=== PATIENT | female | born 1980 | race Caucasian/White ===

== ENCOUNTER 2022-09-02 08:31 | Outpatient (CLI) | payer BC, SELFPAY ==
--- NOTE | 2022-09-02 08:45 | CRLHL7_ITS ---
For Patients: As a result of the Cures Act, medical imaging exams and procedure reports are released immediately into your electronic medical record. You may view this report before your referring provider. If you have questions, please contact your health care provider. INDICATION: Follow up a right-sided thyroid lobe nodule. Fine needle aspiration/biopsy x2. TECHNIQUE : Directed thyroid ultrasound. Grayscale and color Doppler images were acquired of the thyroid gland. COMPARISON : September 24, 2020. FINDINGS: The right thyroid lobe is larger than the left measuring 6.9 x 3.7 x 3.9 cm. The left thyroid lobe measures 3.1 x 0.9 x 0.9 cm. The isthmus measures 0.2 cm in thickness. No left-sided thyroid lobe nodules. No isthmic nodules. The right thyroid gland is largely occupied by a 6.1 x 3.7 x 4.4 cm solid mixed echogenic and isoechoic nodule previously measuring 5.7 x 3.5 x 4.4 cm. No gerry thyroidal nodules or masses. IMPRESSION: Minor interval increase in one dimension of the solid mixed echogenic and isoechoic nodule within the right thyroid gland. The examination is otherwise unremarkable. Dictated by James Phillips MD @ 09/02/2022 9:26:17 AM (Electronically Signed)
== END 2022-09-02 08:32 | disposition home or self-care (01) ==
PROVIDERS: Visit Provider Surgery
DX: E04.1 Nontoxic single thyroid nodule (principal)
CPT/HCPCS: 76536

== ENCOUNTER 2022-09-09 11:26 | Outpatient (CLI) | payer BC, SELFPAY | END 2022-09-09 11:27 | disposition home or self-care (01) | LOC: NFLDREF 11:27 | PROVIDERS: Visit Provider Surgery | DX: E04.9 Nontoxic goiter, unspecified (principal) | CPT/HCPCS: 84443 ==

== ENCOUNTER 2022-10-03 08:32 | Outpatient (CLI) | payer BC, SELFPAY ==
--- NOTE | 2022-10-03 08:15 | CRLHL7_ITS ---
For Patients: As a result of the Century Cures Act, medical imaging exams and procedure reports are released immediately into your electronic medical record. You may view this report before your referring provider. If you have questions, please contact your health care provider. INDICATION : Right thyroid nodule. TECHNIQUE : Ultrasound-guided fine needle aspiration of thyroid nodule. Comparison : 09/02/2022, 09/24/2020 FINDINGS : PROCEDURE: After the informed consent and time-out, multiple fine needle aspirations were obtained from the thyroid nodule. Fine needle performed. 25 gauge needles were used. Lidocaine was used for local anesthesia. The preliminary cytology was adequate for interpretation. Real-time imaging was used for guidance and needle placement. Post imaging ultrasound demonstrates no immediate complication. IMPRESSION : Successful fine needle aspiration of right thyroid lobe nodule. Dictated by Shiva Staton MD @ 10/03/2022 9:30:59 AM (Electronically Signed)
== END 2022-10-03 08:33 | disposition home or self-care (01) ==
LOC: US 08:32
PROVIDERS: Visit Provider Surgery
DX: E04.1 Nontoxic single thyroid nodule (principal)
CPT/HCPCS: 10005; 88173

== ENCOUNTER 2023-04-14 10:01 | Outpatient (CLI) | payer BC, SELFPAY | END 2023-04-14 10:02 | disposition home or self-care (01) | PROVIDERS: Visit Provider Family Medicine | DX: Z00.00 Encounter for general adult medical examination without abnormal findings (principal); E55.9 Vitamin D deficiency, unspecified; E04.1 Nontoxic single thyroid nodule; E04.9 Nontoxic goiter, unspecified; D64.9 Anemia, unspecified; E66.9 Obesity, unspecified; R35.89 Other polyuria; Z11.59 Encounter for screening for other viral diseases; Z79.899 Other long term (current) drug therapy | CPT/HCPCS: 80053; 80061; 82306; 84443; 86803 ==

== ENCOUNTER 2023-06-11 10:05 | Outpatient (CLI) | payer BC, SELFPAY ==
--- OUTSIDE RECORDS SUMMARY | 2023-06-11 10:09 | XMS_ITS | Clinical Summary ---
Author Name Unknown Organization [place] Address [address] [place] [address] Care Team Providers Care General Cargo Clerk Name Role Phone [facility]- Primary Care Provider Aleida White MD Unavailable [phone] Allergies No known active allergies Medications Medication Sig Dispensed Refills Start Date End Date Status lamoTRIgine (LAMICTAL) 200 MG tablet Take 1 tablet by mouth At Bedtime 02/13/2022 Active citalopram (CELEXA) 40 MG tablet Take 40 mg by mouth At Bedtime 02/05/2022 Active ibuprofen (ADVIL/MOTRIN) 200 MG tablet Take 400 mg by mouth every 6 hours as needed Active acetaminophen (TYLENOL) 500 MG tablet Take 1,000 mg by mouth daily as needed Active oxyCODONE (ROXICODONE) 5 MG tabletIndications:Acut e cholecystitis Take 1-2 tablets (5-10 mg) by mouth every 4 hours as needed for moderate to severe pain 10 tablet 02/17/2022 Active senna-docusate (SENOKOT-S/PERICOLACE) 8.6-50 MG tabletIndications:Acut e cholecystitis Take 1-2 tablets by mouth 2 times daily 30 tablet 02/17/2022 Active ondansetron (ZOFRAN ODT) 4 MG ODT tabIndications:Acute cholecystitis Take 1 tablet (4 mg) by mouth every 8 hours as needed for nausea 4 tablet 02/17/2022 Active Encounters Date Type Department Care Team Description 04/15/2023 Transcribe Orders GENERIC EXTERNAL DATA DEPARTMENT Provider, Generic External Data Nontoxic single thyroid nodule (Primary Dx); Nontoxic goiter, unspecified 04/14/2023 Medical Correspondence [facility] Info Mgmt [facility] [address] [place] [address] Scan, Non-Provider from Last 3 Months Immunizations Name Administration Dates Next Due TDAP Vaccine (Adacel) 02/16/2019 Social History Tobacco Use Types Packs/Day Years Used Date Smoking Tobacco: Never Assessed Adolescent Education Answer Date Record ed Getting School Help Needed Not on file 11/08 Sex and Gender Information Value Date Recorded Sex Assigned at Not on file Gender Identity Not on file Sexual Orientation Not on file Last Filed Vital Signs Vital Sign Reading Time Taken Comments Blood Pressure 104/76 02/17/2022 12:12 PM HUMAN RESOURCES DESIGNATE Pulse 98 02/17/2022 12:12 PM HUMAN RESOURCES DESIGNATE Temperature 36.4 ??C (97.6 ??F) 02/17/2022 1 2:12 PM HUMAN RESOURCES DESIGNATE Respiratory Rate 16 02/17/2022 12:1 2 PM HUMAN RESOURCES DESIGNATE Oxygen Saturation 94% 02/17/2022 12: 12 PM HUMAN RESOURCES DESIGNATE Inhaled Oxygen Concentration - - Weight 101.6 kg (223 lb 14.4 oz) 02/17/2022 1:40 AM HUMAN RESOURCES DESIGNATE Height 170.2 cm (5' 7) 02/17/2022 1:40 AM HUMAN RESOURCES DESIGNATE Body Mass Index 35.07 02/17/2022 1:40 AM HUMAN RESOURCES DESIGNATE Plan of Treatment Upcoming Encounters Date Type Department Care Team (Late st Contact Info) Description 10/21/2023 10:00 AM CDT Office Visit [facility] [address] [place] [address] Gabriela Briceno MD [facility] AND [address] [address] Aleida White MD [address] [place] [address] [address] [place] [address] Health Maintenance Due Date Last Done Comments ADVANCE CARE PLANNING 1981 ANNUAL REVIEW OF HM ORDERS 1981 MAMMO SCREENING 1981 YEARLY PREVENTIVE VISIT 1981 HIV SCREENING 1996 HEPATITIS C SCREENING 11/24/1999 HEPATITIS B IMMUNIZATION (1 of 3 - 19+ 3-dose series) 2000 PAP 2002 LIPID 2021 COVID-19 Vaccine (4 - 2022-2 4 season) 2022 05/03/2021, 07/03/2020, 06/09/2020 INFLUENZA VACCINE (#1) 2022 11/11/2019 PHQ-2 (once per calendar year) 2023 GLUCOSE 02/17/2025 02/17/2022, 02/16/2022 DTAP/TDAP/TD IMMUNIZATION (2 - Td or Tdap) 02/16/2029 02/16/2019 HPV IMMUNIZATION Aged Out No longer e ligible based on patient's age to complete this topic IPV IMMUNIZATION Aged Out No longer e ligible based on patient's age to complete this topic MENINGITIS IMMUNIZATION Aged Out No l onger eligible based on patient's age to complete this topic Pneumococcal Vaccine: Pediatrics (0 to 5 Years) and At-Risk Patients (6 to 64 Years) Aged Out No longer eligible b ased on patient's age to complete this topic RSV MONOCLONAL ANTIBODY Aged Out No l onger eligible based on patient's age to complete this topic Procedures Procedure Name Priority Date/Time Associated Diagnosis Comments LAB RESULT - HIM SCAN 04/14/2023 12:00 AM HUMAN RESOURCES DESIGNATE LAB RESULT - HIM SCAN 04/14/2023 12:00 AM HUMAN RESOURCES DESIGNATE BASIC METABOLIC PANEL Routine 02/17/2022 7:34 AM HUMAN RESOURCES DESIGNATE from Last 3 Months or Most Recently Relevant to Health Maintenance Results * LAB RESULT - HIM SCAN (04/14/2023 12:00 AM HUMAN RESOURCES DESIGNATE) Only the most recent of2 resultswithin the time period is included. 04/14/2023 Provider Outside NON-BEAKER LAB TE STING * (ABNORMAL) Basic metabolic panel (02/17/2022 7:34 AM HUMAN RESOURCES DESIGNATE) Sodium 138 136 - 145 mmol/L 02/17/2022 8:08 AM HUMAN RESOURCES DESIGNATE [facility] Potassium 3.8 3.4 - 5.3 mmol/L 02/17/2022 8:08 AM [facility] Chloride 106 98 - 107 mmol/L 02/17/2022 8:08 AM [facility] Carbon Dioxide (CO2) 24 22 - 29 mmol/L 02/17/2022 8:08 AM [facility] Anion Gap 8 7 - 15 mmol/L 02/17/2022 8:08 AM [facility] Urea Nitrogen 8.9 6.0 - 20.0 mg/dL 02/17/2022 8:08 AM [facility] Creatinine 0.60 0.51 - 0.95 mg/dL 02/17/2022 8:08 AM [facility] Calcium 8.1(L) 8.6 - 10.0 mg/dL 02/17/2022 8:08 AM [facility] Glucose 93 70 - 99 mg/dL 02/17/2022 8:08 AM [facility] GFR Estimate >90 >60 mL/min/1.7 3m2 02/17/2022 8:08 AM [facility] Comment:Effective January 172020 eGFRcr in adults is calculated using the 2020 CKD-EPI creatinine equation which includes age and gender (Wm et al., NEJM, DOI: 10.1056/IAFRgq3901097) Blood STRUCTURE OF LEFT UPPER LIMB / Unknown Venipuncture / Unknown 02/17/2022 7:34 AM HUMAN RESOURCES DESIGNATE 02/17/2022 7:45 AM [facility] Blaire Travis PA-C LAB - BLOOD ORDER [facility] Acute Care Lab [address] Lab (1st floor, no room number) [place] [address], [facility] [phone] from Last 3 Months or Most Recently Relevant to Health Maintenance Advance Directives For more information, please contact: [phone] * Full Code (Latest Code Status on File) Date Activated Date Inactivated Comments 02/17/2022 1:15 AM 02/17/2022 2:31 PM All basic and advanced life-sustaining interventions are performed as appropriate Question Answer Comments Code status determined by: Discussion with shawn nt/ legal decision maker Care Teams General Cargo Clerk Relationship Specialty Start Date End Date [facility]- [address] [place] [address] PCP - General 02/16/22 Aleida White MD [address] [place] [address] Hospitalist Endocrinology, Diabetes, and Metabolism 04/15/23
--- OUTSIDE RECORDS SUMMARY | 2023-06-11 10:09 | XMS_ITS | Clinical Summary ---
Author Name Unknown Organization [facility] Address [address] [place] [address] Care Team Providers Care Switch Foreman Name Role Phone Unavailable Primary Care Provider Unavailabl e Source Comments You are receiving this document as you are listed as the primary care provider,follow-up provider, or the patient has been referred to you for consultation.This is in compliance with the Medicare andMedicaid EHR Incentive Program,which states Providers who transition their patient to another setting of careor provider of care or refers their patient to another provider of care shouldprovide summary care record for each transition of care or referral. [facility] Allergies No known active allergies Medications Medication Sig Dispensed Refills Start Date End Date Status acetaminophen 500 MG tablet Take 2 Tablets (1,000 mg) by mouth every 4 hours as needed. Active citalopram (CELEXA) 40 MG tablet Take 1 Tablet (40 mg) by mouth. 02/05/2022 Active ibuprofen (MOTRIN) 200 MG tablet Take 2 Tablets (400 mg) by mouth every 6 hours as needed. Active penicillin V potassium (PEN VK) 500 MG tablet Take 1 Tablet (500 mg) by mouth two times a day. 06/02/2022 Active lamoTRIgine (LAMICTAL) 200 MG tablet Take 1 Tablet (200 mg) by mouth daily at bedtime. 02/13/2022 Active venlafaxine (EFFEXORXR) 75 MG 24 hour release capsule Take 1 Capsule (75 mg) by mouth daily. 04/08/2022 Active Social History Tobacco Use Types Packs/Day Years Used Date Smoking Tobacco: Never Assessed Sex and Gender Information Value Date Recorded Sex Assigned at Not on file Gender Identity Not on file Sexual Orientation Not on file Last Filed Vital Signs Vital Sign Reading Time Taken Comments Blood Pressure - - Pulse - - Temperature 36.7 ??C (98 ??F) 07/01/2022 9:32 AM CDT Respiratory Rate - - Oxygen Saturation - - Inhaled Oxygen Concentration - - Weight 99.8 kg (220 lb) 06/12/2022 8:16 AM CDT Height 170.2 cm (5' 7) 06/12/2022 8:16 AM CDT Body Mass Index 34.46 06/12/2022 8:16 AM CDT Plan of Treatment Health Maintenance Due Date Last Done Comments Cervical Cancer Screening Due 1981 Diabetes Screening- (based o n age and BMI) 1981 Hep C Screening (Preventive Services) 1981 HIV Screening (Preventive Services) 1997 Adult Preventive Visit 11/24/1999 HepB (1) 2000 COVID-19 Vaccine ( - 2022-2 4 season) 2022 05/03/2021, 07/03/2020, 06/09/2020 Influenza (#1) 2022 11/11/2019 DTaP/Tdap/Td (2 - Tdap) 02/16/2029 02/16/2019 Zoster/Shingles (1 of 2) 11/24/2031 HPV Vaccine Aged Out No longer eligi ble based on patient's age to complete this topic HepA Aged Out No longer eligi ble based on patient's age to complete this topic Hib Aged Out No longer eligi ble based on patient's age to complete this topic IPV (Polio) Aged Out No longer eligi ble based on patient's age to complete this topic MCV4 Aged Out No longer eligi ble based on patient's age to complete this topic Pneumococcal Aged Out No longer eligi ble based on patient's age to complete this topic
--- OUTSIDE RECORDS SUMMARY | 2023-06-11 10:09 | XMS_ITS | Encounter Summary ---
Author Name Unknown Organization [place] Address [facility] [place] [address] Care Team Providers Care Butt Maker Name Role Phone [facility], [facility]- Primary Care Provider Aleida White MD Unavailable [phone] Reason for Referral * Consultation (Routine) - Pending Review Specialty Diagnoses / Procedures Referred By Vicente guzman Referred To Contact Endocrinology, Diabetes, and Metabolism Diagnoses Nontoxic single thyroid nodule Nontoxic goiter, unspecified Gabriela Briceno MD [facility] [address] [place] [address] Referral ID Status Reason Start Date Expiration Date V isits Requested Visits Authorized [id number] Pending Review 04/15/2023 04/14/2024 1 1 Question Answer Reason for Referral: Thyroid Scheduling Instructions: [employer] will call you to coordinate your care as prescribed by the provider. If you don? t hear from a risk control field representative within 2 business days, please call [phone]. Comments Referred by: Gabriela Briceno MD [facility] [address] [place] [address] Please be aware that coverage of these services is subject to the terms and limitations of your health insurance plan. Call member services at your health plan with any benefit or coverage questions. [employer] will call you to coordinate your care as prescribed by the provider. If you don? t hear from a risk control field representative within 2 business days, please call [phone]. [place] SUPPORT EQUIPMENT ASSEMBLER Encounter Details Date Type Department Care Team (Late st Contact Info) Description 04/15/2023 Transcribe Orders GENERIC EXTERNAL DATA DEPARTMENT Provider, Generic External Data Nontoxic single thyroid nodule (Primary Dx); Nontoxic goiter, unspecified Social History Tobacco Use Types Packs/Day Years Used Date Smoking Tobacco: Never Assessed Adolescent Education Answer Date Record ed Getting School Help Needed Not on file 11/08 Sex and Gender Information Value Date Recorded Sex Assigned at Not on file Gender Identity Not on file Sexual Orientation Not on file documented as of this encounter Plan of Treatment Upcoming Encounters Date Type Department Care Team (Late st Contact Info) Description 10/21/2023 10:00 AM CDT Office Visit [facility] [address] [facility] [address] [place] [phone] Gabriela Briceno MD [address] [id number] Aleida White MD [address] [place], [place] [address] Scheduled Referrals Name Type Priority Associated Diagnoses Orde r Schedule Adult Endocrinology Fulling Mill Operator Referral Referral Routine Nontoxic single thyroid nodule Nontoxic goiter, unspecified Expected: 04/15/2023 (Approximate), Expires: 04/15/2024 documented as of this encounter Visit Diagnoses Diagnosis Nontoxic single thyroid nodule- Primary Nontoxic uninodular goiter Nontoxic goiter, unspecified documented in this encounter Care Teams Butt Maker Relationship Specialty Start Date End Date [facility]- [address] [place] [address] PCP - General 02/16/22 Aleida White MD [address] [place], [place] [address] Hospitalist Endocrinology, Diabetes, and Metabolism 04/15/23 documented as of this encounter
--- OUTSIDE RECORDS SUMMARY | 2023-06-11 10:09 | XMS_ITS | Encounter Summary ---
Author Name Unknown Organization [place] Address [address] [facility] [place] [address] Care Team Providers Care Web Designer Name Role Phone [facility], [facility]- Primary Care Provider Aleida White MD Unavailable [phone] Encounter Details Date Type Department Care Team (Late Contact Info) Description 04/14/2023 Medical Correspondence [facility] [address] [place] [address] Scan, Non-Provider Social History Tobacco Use Types Packs/Day Years [...] Upcoming Encounters Date Type Department Care Team ([facility] Contact Info) Description 10/21/2023 10:00 AM CDT Office Visit [facility] [address] [place] [address] Gabriela Briceno MD [address] [address] Aleida White MD [address] [place] [address] documented as of this encounter Visit Diagnoses Not on filedocumented in this encounter Care Teams Web Designer Relationship Specialty Start Date End Date [facility]- [address] [place] [address] PCP - General 02/16/22 Aleida White MD [address] [place] [address] Hospitalist Endocrinology, Diabetes, and Metabolism 04/15/23 documented as of this encounter
--- OUTSIDE RECORDS SUMMARY | 2023-06-11 10:09 | XMS_ITS | Referral Summary ---
Author Name Unknown Organization [place] Address [address] [facility] [place] [address] Care Team Providers Care Territory Outside Sales Manager Name Role Phone [facility]- Primary Care Provider Aleida White MD Unavailable [phone] Encounters Date Type Department Care Team Description 04/15/2023 Transcribe Orders GENERIC EXTERNAL DATA DEPARTMENT Provider, Generic External Data Nontoxic single thyroid nodule (Primary Dx); Nontoxic goiter, unspecified 04/14/2023 Medical Correspondence [facility] [address] [place] [address] Scan, Non-Provider from Last 3 Months Allergies No known active allergies Medications Medication [...] needed for nausea 4 tablet 02/17/2022 Active Immunizations Name Administration Dates Next Due TDAP [...] Comments Blood Pressure 104/76 02/17/2022 12:12 PM [facility] Pulse 98 02/17/2022 12:12 PM [facility] Temperature 36.4 ??C (97.6 ??F) 02/17/2022 1 2:12 PM [facility] Respiratory Rate 16 02/17/2022 12:1 2 PM [facility] Oxygen Saturation 94% 02/17/2022 12: 12 PM [facility] Inhaled Oxygen Concentration - - Weight 101.6 kg (223 lb 14.4 oz) 02/17/2022 1:40 AM [facility] Height 170.2 cm (5' 7) 02/17/2022 1:40 AM [facility] Body Mass Index 35.07 02/17/2022 1:40 AM [facility] Plan of Treatment Upcoming Encounters Date Type Department Care Team (Late st Contact Info) Description 10/21/2023 10:00 AM CDT Office Visit [facility] [address] [place] [address] Gabriela Briceno MD [facility] AND [address] [address] Aleida White MD [address] [place] [address] [address] [place] [address] Procedures Procedure Name Priority Date/Time Associated Diagnosis Comments LAB RESULT - HIM SCAN 04/14/2023 12:00 AM [facility] LAB RESULT - HIM SCAN 04/14/2023 12:00 AM [facility] BASIC METABOLIC PANEL Routine 02/17/2022 7:34 AM [facility] from Last 3 Months or Most Recently Relevant to Health Maintenance Results * LAB RESULT - HIM SCAN (04/14/2023 12:00 AM [facility]) Only the most recent of2 resultswithin the time period is included. 04/14/2023 Provider Outside NON-BEAKER LAB TE STING * (ABNORMAL) Basic metabolic panel (02/17/2022 7:34 AM [facility]) Sodium 138 136 - 145 mmol/L 02/17/2022 8:08 AM [facility] Potassium 3.8 3.4 - 5.3 mmol/L 02/17/2022 8:08 AM [facility] Chloride 106 98 - 107 mmol/L 02/17/2022 8:08 AM [facility] Carbon Dioxide (CO2) 24 22 - 29 mmol/L 02/17/2022 8:08 AM [facility] Anion Gap 8 7 - 15 mmol/L 02/17/2022 8:08 AM [facility] Urea Nitrogen 8.9 6.0 - 20.0 mg/dL 02/17/2022 8:08 AM [facility] Creatinine 0.60 0.51 - 0.95 mg/dL 02/17/2022 8:08 AM [facility] Calcium 8.1(L) 8.6 - 10.0 mg/dL 02/17/2022 8:08 AM [facility] Glucose 93 70 - 99 mg/dL 02/17/2022 8:08 AM [facility] GFR Estimate >90 >60 mL/min/1.7 3m2 02/17/2022 8:08 AM [facility] Comment:Effective January 172020 eGFRcr in adults is calculated using the 2020 CKD-EPI creatinine equation which includes age and gender (Wm et al., NEJM, DOI: 10.1056/HNEEmp6347136) Blood STRUCTURE OF LEFT UPPER LIMB / Unknown Venipuncture / Unknown 02/17/2022 7:34 AM [facility] 02/17/2022 7:45 AM [facility] Blaire Travis PA-C LAB - BLOOD ORDER [facility] Acute Care Lab [address] Lab (1st floor, no room number) [place] [address], [facility] [phone] from Last 3 Months or Most Recently Relevant to Health Maintenance Advance Directives For more information, please contact: [phone] * Full Code (Latest Code Status on File) Date Activated Date Inactivated Comments 02/17/2022 1:15 AM 02/17/2022 2:31 PM All basic and advanced life-sustaining interventions are performed as appropriate Question Answer Comments Code status determined by: Discussion with shawn nt/ legal decision maker Care Teams Territory Outside Sales Manager Relationship Specialty Start Date End Date [facility]- [address] [place] [address] PCP - General 02/16/22 Aleida White MD [address] [place] [address] Hospitalist Endocrinology, Diabetes, and Metabolism 04/15/23
--- OUTSIDE RECORDS SUMMARY | 2023-06-11 10:09 | XMS_ITS | Clinical Summary ---
Author Name Unknown Organization [employer] [facility] Address [place], [place] [address] Care Team Providers Care Medical Sales Specialist Name Role Phone Clinic, No Pcp Or Primary Care Provider Unavaila ble Allergies No known active allergies Medications Medication Sig Dispensed Refills Start Date End Date Status sertraline (ZOLOFT) 100 mg tablet Take 1 tablet by mouth every morning. 0 03/22/2018 Active lamoTRIgine (LAMICTAL) 100 mg tablet Take 1 tablet by mouth once daily. 0 03/22/2018 Active triamcinolone (ARISTOCORT; KENALOG) 0.1 % creamIndications:Rash Apply topically to affected area(s) 2 times daily. 45 g 05/31/2018 Active Social History Tobacco Use Types Packs/Day Years Used Date Smoking Tobacco: Never Smokeless Tobacco: Never Alcohol Use Standard Drinks/Week Comments Yes 0 (1 standard drink = 0.6 oz pur e alcohol) PHQ-2 Answer Date Recorded PHQ-2 Score 2 05/31/2018 Sex and Gender Information Value Date Recorded Sex Assigned at Not on file Gender Identity Not on file Sexual Orientation Not on file Obstetrics History Last Filed Vital Signs Vital Sign Reading Time Taken Comments Blood Pressure 122/72 05/31/2018 10:10 AM CDT Pulse 80 05/31/2018 10:10 AM CDT Temperature 36.8 ??C (98.3 ??F) 03/22/2018 9:49 AM CS T Respiratory Rate 20 03/22/2018 9:49 AM THREAD DRAWER Oxygen Saturation 96% 03/22/2018 9:49 AM THREAD DRAWER Inhaled Oxygen Concentration - - Weight 92.1 kg (203 lb) 05/31/2018 10:10 AM CDT Height 172.1 cm (5' 7.75) 05/31/2018 10:10 AM C DT Body Mass Index 31.09 05/31/2018 10:10 AM CDT Plan of Treatment Health Maintenance Due Date Last Done Comments Tdap 1992 HIV for age 15-65 1996 Hepatitis C screening for ag e 18-79 11/24/1999 Tetanus booster 2001 BMI (ht and wt on same day) for age 18+ 06/01/2019 05/31/2018, 03/22/2018 Depression screening for age 12+ 06/01/2019 05/31/2018 Pap test for age 21-65 02/22/2022 0, 02/22/2019 COVID-19 vaccine series (2022- season) 2022 Influenza for age 9-49 10/18/2023 Pneumococcal series for age 6-64 Aged Out No longer eligible b ased on patient's age to complete this topic Procedures Procedure Name Priority Date/Time Associated Diagnosis Comments RADIOLOGY ASSISTANT THIN PREP PAP SCREEN IMAGED Routine 02/22/2019 1:00 PM THREAD DRAWER from Last 3 Months or Most Recently Relevant to Health Maintenance Results * RADIOLOGY ASSISTANT THIN PREP PAP SCREEN IMAGED (02/22/2019 1:00 PM THREAD DRAWER) Case Report Gynecologic Cytology Report ? Case: [id number] ? Authorizing Provider: ??Selena Kamara NP ? Collected: ? 02/22/2019 1300 ? Ordering Location: ? [facility] ?Received: ?02/23/2019 1708 ? First Screen: ?Peter Conde ? Specimen: ?RADIOLOGY ASSISTANT ThinPrep Vial Screening, Cervical/Vaginal ? 03/02/2019 2:18 PM [facility] INTERPRETATION/ RESULT NEGATIVE FOR INTRAEPITHELIAL LESION OR MALIGNANCY (NIL) (none) 03/02/2019 2:18 PM [facility] IMEN ADEQUACY Satisfactory for evaluation Endocervical component present 03/02/2019 2:18 PM [facility] HPV REQUEST HPV and PAP 03/02/2019 2:18 PM [facility] Date of LMP 02/08/2019 03/02/2019 2:18 PM [facility] Last Pap Date 03/02/2019 2:18 PM [facility] Comment:unknown Additional Information 03/02/2019 2:18 PM [facility] Comment: Interpreted at [facility] - [address] [facility] [address], [place] [address] Automated Review Successful 03/02/2019 2:18 PM [facility] Comment:Specimen processed s uccessfully by automated gastroenterology professor device, ThinPrep Imaging System, [employer] ANCILLARY TESTING RADIOLOGY ASSISTANT HPV Ordered, Please see separate report 03/02/2019 2:18 PM [facility] Note The pap test is a screening technique, not a diagnostic procedure. It is used primarily to screen for squamous cancers and precursor lesions. Published studies have shown that it is subject to both false negative and false positive results. The pap test should not be used as the sole means to diagnose or exclude pre-malignant and malignant lesions. 03/02/2019 2:18 PM [facility] Other (Cervical/Vagina l) 02/22/2019 1:00 PM THREAD DRAWER 02/23/2019 5:08 PM THREAD DRAWER Selena Kamara NP [facility] [address] [place] [address], [place] from Last 3 Months or Most Recently Relevant to Health Maintenance Care Teams Medical Sales Specialist Relationship Specialty Start Date End Date Clinic, No Pcp Or . PCP - General 03/22/18
--- OUTSIDE RECORDS SUMMARY | 2023-06-11 10:09 | XMS_ITS | Data Portability ---
Author Name Unknown Address [address] [place] [id number] Phone [phone] Organization [place] - [facility], [facility] Address [address] [place] [address] Care Team Providers Care Call Center Support Consultant Name Role Phone HUA LYNCH Referring Provider Assessment Encounter Date Assessment Date Assessment LastModified by Organization Details LastModified Time 01/25/2019 01/25/2019 Today I spent a considerable amount of time discussing the patients past medical and personal history, as well as performing a physical examination all of which is documented in it's entirety in the electronic health record. I reviewed the pathophysiology of the disorder, potential contributing and risk factors as well as treatment options to address their complaints. Today panoramic imaging was obtained. In this radiograph the mandibular condyles were partially visualized and appear relatively normal in morphology. There was no other suggestion of osseous or odontogenic abnormalities. I've not recommended advanced imaging with CT at this time. From a treatment perspective I've recommended rehabilitative treatment approach. Treatment begins with home self management designed to rest the muscles of mastication and reduce inflammation in the temporomandibular joints. This includes heat and ice compresses, eating a soft food or pain-free diet, bilateral chewing identifying and decreasing daytime muscle tension and modification of their sleep position. Beyond self management I do believe that they would benefit from a maxillary intraoral appliance. In addition I've recommended rehabilitation with physical therapy. The goal of treatment is to restore function and reduce pain. I do believe that by following these treatment recommendations there is a good prognosis for reduction of symptoms. Today greater than 50% of the 60 minute visit was spent counseling and coordinating care. This may have included a review of the diagnosis, contributing factors, diagnostic imaging, home self-management strategies and the limitations and expectations. Cost of care and insurance coverage was reviewed and discussed with the patient. Not available 01/25/2019 11:47:45 02/21/2019 02/21/2019 Symptoms are consistent with TMD diagnosis. Patient is low moderate maximum complexity with 2 personal factors / comorbidities affecting the plan of care, which include stress and anxiety with evolving clinical presentation. Examination determines affected structures, participation restrictions and/or functional limitations. The patient will benefit from PT to decrease pain and increase function. Contributing factors include muscle guarding, oral habits, stress and poor posture. Treatment will include exercises to release muscle tension and increase strength and stability. Habit monitoring and repeated reminding techniques will be utilized to eliminate habitual clenching. Improvement in first session; jaw opening increased from 22 to 32, (36 mm but clicking; 32 mm without clicking so so told not push further), She also bites down harder without increased pain. She gets two fingers, but not knuckles, into mouth Short term goals; 3 weeks Client to be able to open mouth to 35 mm pain free without deviation or crepitis Client to be able to bite down with 50% less pain than at evaluation Client to improve cervical ROM to Within Normal Limits Improve patient awareness of muscle guarding habits to decrease pain by 50% group home goals-6 weeks Client to demonstrate independence in maintaining precautions to prevent TMJ pain Client to present with at least 75% less crepitis Client to open jaw to at least 40 mm without pain, deviation or crepitis Client to have pain-free chewing with moderately hard diet 75% of the time Client to report pain level is reduced at least 75% as evidenced by functional limitation scale PLAN: Client is to be seen 1-2x/week for 4-8 weeks for instruction in jaw and neck exercises, postural exercises and body mechanics instructions, self-soft tissue mobilization avoidance of precipitating parafunctional activities. csather Not available 02/21/2019 11:09:33 02/23/2019 02/23/2019 Improvement in first session; jaw opening increased from 25 to 32, didn't want to push further. No clucking or popping sat end of session. 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 Client to demonstrate independence in maintaining precautions to prevent TMJ pain Client to present with at least 75% less crepitis Client to open jaw to at least 40 mm without pain, deviation or crepitis Client to have pain-free chewing with moderately hard diet 75% of the time Client to report pain level is reduced at least 75% as evidenced by functional limitation scale PLAN: Client is to be seen 1-2x/week for 4-8 weeks for instruction in jaw and neck exercises, postural exercises and body mechanics instructions, self-soft tissue mobilization avoidance of precipitating parafunctional activities. csather Not available 02/23/2019 13:41:39 Plan of Treatment Reminders Order Date Submit Date Provider Last Modified By Organization Details Last Modified Time Details Appointments None recorded. Lab None recorded. Referral physical therapist referral 2019 020 SRI Tay, Jihan Kim, [address], [address], 0 10:30:11 physical therapist referral 2019 020 Jihan Mitchell [address], [place], [address], 0 09:09:05 physical therapist referral 2018 019 Conner, Jihan Kim, [address], [place], [address], 9 11:49:14 Procedures None recorded. Surgeries None recorded. Imaging None recorded. Medication Orders None recorded. Patient TargetsNo targets recorded. Patient Instructions Encounter Date Encounter Id Patient Instructions Last Modified By Organization Details Last Modified Time 02/23/2019 [id number] oral appliance preparation* SRI Not available 03/16/2019 10:43:27 Self Care for TMD csather Not availabl e 02/23/2019 13:42:49 02/21/2019 [id number] oral appliance preparation* SRI Not available 02/23/2019 09:09:15 Self Care for TMD csather Not availabl e 02/21/2019 11:02:57 01/25/2019 [id number] oral appliance preparation* Not available 01/25/2019 11:49:14 Self Care for TMD Not availabl e 01/25/2019 11:49:14 Reason for Referral Physical Therapist Referral for Articular disc disorder of temporomandibular joint Referring Physician: Gabriela Hairston, Pain Management, Encounter Date: 01/25/2019 Physical Therapist Referral for Articular disc disorder of temporomandibular joint Referring Physician: Noel Shah [facility], Encounter Date: 02/21/2019 Physical Therapist Referral for Articular disc disorder of temporomandibular joint Referring Physician: Noel Shah [facility], Encounter Date: 02/23/2019 Results Created Date Observation Date Name Description Value Unit Range Abnormal Flag LastModifiedBy Organization Detail LastModifiedTime 01/25/2019 oral appli ance prepa ratio n* Type of appliance maxill naif stabil izatio n applia nce Not Available Conner [address] [facility] [address], [place], [address], 01/25/2019 11:46:59 01/26/20 19 XR, ortho panto gram No observ ation record ed. [email or web address] Not Available 01/25/2019 10:36:17 Result Notes None recorded. 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 left disc displacement with reduction; right disc displacement without reduction- closed lock EVELYN Smith [facility] 9 11:45:28 Arthralgia of temporomandibular joint Active 2018 EVELYN Smith [facility] 9 11:45:03 Limited opening of mandible Active 2018 Gabriela Madison gatica [facility] 9 11:45:04 Tension-type headache Active 2018 Gabriela Madison gatica [facility] 9 11:45:04 Otalgia of right ear Active 2018 Gabriela Madison gatica [facility] 9 11:45:06 Problem Notes None recorded. Procedures Surgical History Date Name Laterality Status Provider Name and Address Organization Details Recorded Time 02/23/19 06816: Therapeutic Exercise completed Noel gatica [facility] 02/23/2019 13:03:47 02/23/19 49722: Manual Therapy completed Noel gatica [facility] 02/23/2019 13:42:15 02/21/19 [id number] PT Eval - Low Complexity completed Noel gatica [facility] 02/21/2019 10:59:27 02/21/19 [id number]: Therapeutic Exercise completed Noel gatica [facility] 02/21/2019 11:00:00 02/21/19 [id number]: Manual Therapy completed Noel gatica [facility] 02/21/2019 10:59:57 01/26/20 19 Orthopantogram completed Gabriela gatica [facility] 01/25/2019 11:06:06 Imaging Results Imaging Date Name Status LastModified by Organization Details LastModified Time 01/25/2019 XR, orthopantogram completed doron Inform ation not available 01/25/2019 10:36:17 Procedure Notes None recorded. Medical Equipment None Reported. Allergies No known drug allergies Medications Name Sig Start Date Stop Date Status Note LastModified by Organization Details LastModified Time sertraline 100 mg tablet active Not Available Not Available No t Available triamcinolone acetonide 0.1 % topical cream active Not Available Not Availabl e Not Available lamotrigine 25 mg tablet active Not Available Not Available No t Available sertraline 50 mg tablet active Not Available Not Available No t Available lamotrigine 100 mg tablet active Not Available Not Available No t Available Vitals Date Recorded Body height Body mass index (BMI) Body weight Heart rate Systolic blood pressure Diastolic blood pressure Provider Name and Address Organization Details Last Updated DateTime 9 170.18 cm 31.3 kg/m2 33188.4 7 g 80 /min 119 mm[Hg] 79 mm[Hg] JeancarlosEVELYN Go [facility] 9 10:11:18 Social History Question Answer Notes LastModified by Organizat ion Details LastModified Time Tobacco Smoking Status Never Smoker Jeancarlos GironEVELYN keyes [facility] 01/25/2019 10:11:44 What Is Your Level Of Alcohol Consumption? Moderate Information not available 01/25/2019 Auto Related Injury? No Information not available 01/25/2019 What Is Your Level Of Caffeine Consumption? Heavy Information not available 01/25/2019 Are You Currently Employed? Yes Information not available 01/25/2019 Currently No Information not available 01/25/2019 What Type Of Diet Are You Following? REGULAR Information not available 01/25/2019 Do You Reside In Or Have You Traveled To An Area Where Ebola Virus Transmission Is Active? 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 With Others Information not available 01/25/2019 Marital Status Informatio n not available 01/25/2019 What Number Best Describes Your Pain On Average In The Past Week? (0=no Pain, 10=pain As Bad As You Can Imagine) 7 Information not available 01/25/2019 What Number Best Describes How, During The Past Week, Pain Has Interfered With Your Enjoyment Of Life? (0=does Not Interfere, 10= Completely Interferes) 8 Information not available 01/25/2019 What Number Best Describes How, During The Past Week, Pain Has Interfered With Your General Activity? (0=does Not Interfere, 10=completely Interferes) 7 Information not available 01/25/2019 Caffeine Use - How Much? 4 Cups Information not available 01/25/2019 How Did Primary Problem Begin? Mar 2018 Slipped And Hit My Head Caused Jaw Issue On Right Side Always Had Jaw Popping On Left Side Information not available 01/25/2019 How Many Children Do You Have? 1 Information not available 01/25/2019 General Stress Level High Information not available 01/25/2019 Do You Use Any Illicit Or Recreational Drugs? No Information not available 01/25/2019 Work Related Injury? No Information not available 01/25/2019 Sex: Female Functional Status Question Answer Note LastModified by Organizat ion Details LastModified Time What is your exercise level? Occasional Information not available 01/25/2019 Mental Status None recorded. Family History Relationship Description Onset Age of this Age Resolved Age Notes Father Heart disease Father Mental health problem Maternal Grandmother Family history of cancer Mother Mental health problem Medical History Condition Response Coronary Artery Disease N Gout N Other N MRSA N Head Trauma/Injury Y COPD N Depression Y Glaucoma N Lung Disease N Pneumonia N Pacemaker N Obstructive Sleep Apnea N Anxiety Disorder N Autoimmune disease N Muscle, Joint, or Bone Problems N Vision or Eye Problems N Arthritis N Acid Reflux (GERD) N Cancer N Stroke N Back Injury N High Cholesterol N Liver Disease N Organ Transplant N Rheumatoid Arthritis N Fibromyalgia N Headaches N Kidney Disease N Allergies/Hayfever N Post traumatic stress disorder (PTSD) N Parkinson's Disease N Migraines N Brain Tumors N Anemia N Multiple Sclerosis N Heart Attack (ND) N Stomach Ulcers N Diabetes N Bleeding Disorder N Seizures/Epilepsy N Tuberculosis N AIDS/HIV N Dementia N Asthma N Substance Abuse N Vertigo N Sleep Disorder N Hepatitis N Neuropathy N Heart Disease N Pulmonary Embolism N Hypertension Y Osteoporosis N Gynecological HistoryNo gynecological history recorded. Obstetrics History GPAL:G 0 P 0 0 0 0 Past Encounters Encounter ID Performer Location Encounter Start Date Encounter Closed Date Diagnosis/Indication Diagnosis SNOMED-CT Code [id number] Gabriela Pettit [address] [place], [place] [phone] 01/25/2019 09:54:02 01/25/2019 11:27:09 Limited opening of mandible 982926727 Tension-type headache 39 7043611 Otalgia of right ear 109 [id number] 5 Articular disc disorder of temporomandibular joint 83964337 Arthralgia of temporomandibular joint 10119944 Myofascial pain 03817874 9 [id number] Noel Shah [place] [address] [place] [id number] 02/21/2019 10:01:11 02/21/2019 13:14:37 Articular disc disorder of temporomandibular joint 46078482 Myofascial pain 25309755 9 Arthralgia of temporomandibular joint 71943889 Limited op ening of mandible 763932681 Tension-type headache 39 7668699 [id number] Noel Alyssa [place] [address] [place] [id number] 02/23/2019 12:57:36 02/23/2019 13:32:02 Articular disc disorder of temporomandibular joint 08555866 Myofascial pain 63859198 9 Arthralgia of temporomandibular joint 65017653 Limited op ening of mandible 893682845 Tension-type headache 39 2561637 Health Concerns Section Related Observation LastModified by Organization Detai ls LastModified Time None Recorded Concern Status LastModified by Organization Details LastModified Time None Recorded Advance Directives Directive None Recorded Payers Encounter Date Sequence Insurance Name Policy Number Policy Lynch Covered Member ID Lynch Member ID Guarantor Name 02/23/2019 [place] Yung Brice [id number] Yung Brice 02/21/2019 1 [place] Yung Brice [id number] Yung Brice 01/25/2019 1 [place] Yung Brice [id number] Yung Brice Notes Date Note Type Note Provider Name and Address Organization Details Recorded Time 01/25/2019 text/html HPI Notes: gener al HPI for jaw, face, TMD pain Reported by patient. Onset: started 10 month(s) ago Location: right; bilateral Quality: dull; aching; pressure Severity: moderate; pain level 3-5/10; radiating to the head Duration intermittent weekly; initial improvement, but still persistent Symptom triggers: clenching; bruxism; stress; anxiety; chewing gum; chews hard/crunchy/chewy foods; history of trauma to the jaw Aggravating Factors: stress; anxiety; clenching the teeth; yawning; wide mouth opening; dental work; chewing Alleviating Factors: massage; soft foods Associated Symptoms: jaw clicking bilateral; jaw popping bilateral Prior opinion dentist Patient presents today for evaluation of a possible temporomandibular disorder. These symptoms are chronic and began with a fall on the ice in the driveway in 2018. Previous consultation include evaluation with her dentist. Symptoms are right sided only and aggravated by clenching and grinding of their teeth, and jaw use and function. The patient is aware of teeth clenching and grinding. Yuliet reports that she has had a long history of her tmj's clicking with no issue. However, last March she fell on the ice and hit the back of her head and had a concussion. (MRI reported no bleeding on the brain or skull fracture.) Since the fall, she feels like her bite has been off and that she cannot open her mouth all the way when she eats. The noises in her right tmj have ceased but she feels that her jaw is locked. Gabriela gatica [facility] 01/25/2019 11:49:18 02/21/2019 text/html HPI Notes: gener al HPI for jaw, face, TMD pain Reported by patient. Onset: started 10 month(s) ago Location: right; bilateral Quality: dull; aching; pressure Severity: moderate; pain level 3-5/10; radiating to the head Duration intermittent weekly; initial improvement, but still persistent Symptom triggers: clenching; bruxism; stress; anxiety; chewing gum; chews hard/crunchy/chewy foods; history of trauma to the jaw Aggravating Factors: stress; anxiety; clenching the teeth; yawning; wide mouth opening; dental work; chewing Alleviating Factors: massage; soft foods Associated Symptoms: jaw clicking bilateral; jaw popping bilateral Prior opinion dentist Patient presents today for evaluation of a possible temporomandibular disorder. These symptoms are chronic and began with a fall on the ice in the driveway in 2018. Previous consultation include evaluation with her dentist. Symptoms are right sided only and aggravated by clenching and grinding of their teeth, and jaw use and function. The patient is aware of teeth clenching and grinding. Yuliet reports that she has had a long history of her tmj's clicking with no issue. However, last March she fell on the ice and hit the back of her head and had a concussion. (MRI reported no bleeding on the brain or skull fracture.) Since the fall, she feels like her bite has been off and that she cannot open her mouth all the way when she eats. The noises in her right tmj have ceased but she feels that her jaw is locked. She can't enjoy food because her jaw right so loudly and so much pain. 80% right, 210% left. Concussion in March, jaw felt swollen,. No problems prior to that except left jaw cracking. Headaches did not worsen since the concussion. Stress really aggravates the jaw clicking. She saw chiropractor for headache pain. Jaw pain 02/25 right now. EVELYN [facility] - [facility] 02/21/2019 11:09:44 02/23/2019 text/html HPI Notes: last March she fell on the ice and hit the back of her head and had a concussion. (MRI reported no bleeding on the brain or skull fracture.) Since the fall, she feels like her bite has been off and that she cannot open her mouth all the way when she eats. The noises in her right tmj have ceased but she felt that her jaw is locked. She reports headache came on post session. She is having less popping slightly easier to eat EVELYN Gaffney - [facility] 02/23/2019 13:42:53 OBGyn Episode No OBEpisode recorded.
--- NOTE | 2023-06-11 10:15 | MM_ITS ---
Patient: ANTONI MCCARTNEY Facility:?[facility] Patient ID:?[id number] Site Patient ID:?[id number] Site :?1980 Study:?XRay-Breast Bilateral 3D W/CAD-06/11/2023 10:46:50 AM Ordering Physician:?Gabriela Briceno Final Report: BILATERAL DIGITAL SCREENING MAMMOGRAM WITH TOMOSYNTHESIS AND COMPUTER-AIDED DETECTION CLINICAL HISTORY: Routine screening exam. COMPARISON: None. TECHNIQUE: Digital mammogram in CC and MLO projections including computer-aided detection (CAD). Tomosynthesis utilized. BREAST COMPOSITION: The breasts are heterogeneously dense, which may obscure small masses. FINDINGS: RIGHT Breast: Focal nodular density lower outer quadrant 8 cm from the nipple. Probable fibrocystic change. LEFT Breast: Nodular density with calcifications lower inner quadrant 8 cm from the nipple. IMPRESSION: RIGHT breast asymmetry/mass. LEFT breast calcifications. RECOMMENDATIONS: 1. Additional mammographic views of the RIGHT breast including 3D spot compression CC/MLO. RIGHT breast ultrasound may also be required. 2. Additional mammographic views of the LEFT breast including spot magnification true lateral and spot magnification CC views along with open true lateral view. Possible LEFT breast ultrasound. BI-RADS Category 0: Incomplete: Need Additional Imaging Evaluation and/or Prior Mammograms for Comparison The [facility] will contact the patient for follow-up. A lay language report of this examination will be provided to the patient. Dictated by Shiva Staton MD @ 06/11/2023 11:57:27 AM jj/Dictated by: Shiva Staton MD @ 06/11/2023 11:57:00 AM Signed by:?Shiva Staton MD @06/11/2023 1:02:25 PM (Electronic Signature)
== END 2023-06-11 10:06 | disposition home or self-care (01) ==
LOC: MAMMO 10:06
PROVIDERS: Visit Provider Family Medicine
DX: Z12.31 Encounter for screening mammogram for malignant neoplasm of breast (principal); N63.10 Unspecified lump in the right breast, unspecified quadrant; R92.1 Mammographic calcification found on diagnostic imaging of breast
CPT/HCPCS: 77063; 77067

== ENCOUNTER 2023-07-01 08:21 | Outpatient (CLI) | payer BC, SELFPAY ==
--- OUTSIDE RECORDS SUMMARY | 2023-07-01 08:24 | XMS_ITS | Encounter Summary ---
Author Name Unknown Organization [facility] Address [address] [facility] [place] [address] Care Team Providers Care Aviation Neuropsychologist Name Role Phone [facility]- Primary Care Provider Aleida White MD Unavailable [phone] Encounter Details Date Type Department Care Team (Late Contact Info) Description 04/14/[address] [facility] [address] [place] [address] Scan, Non-Provider Social History Tobacco Use [...] Upcoming Encounters Date Type Department Care Team ([facility] Contact Info) Description 10/21/2023 10:00 AM CDT Office Visit [facility] [address] [place] [address] Gabriela Briceno MD [address] [address] Aleida White MD [address] [place] [address] documented as of this encounter Visit Diagnoses Not on filedocumented in this encounter Care Teams Aviation Neuropsychologist Relationship Specialty Start Date End Date [facility]- [address] [place] [address] PCP - General 02/16/22 Aleida White MD [address] [place] [address] Hospitalist Endocrinology, Diabetes, and Metabolism 04/15/23 documented as of this encounter
--- OUTSIDE RECORDS SUMMARY | 2023-07-01 08:24 | XMS_ITS | Clinical Summary ---
Author Name Unknown Organization [place] Address [address] [place] [address] Care Team Providers Care Talent Acquisition Administrator Name Role Phone [facility]- Primary Care Provider Aleida White MD Unavailable [phone] Allergies No known active allergies Medications Medication [...] Dx); Nontoxic goiter, unspecified 04/14/2023 Medical Correspondence [facility] Info Mgmt Srvcs [address] [facility] [place] [address] Scan, Non-Provider from Last 3 Months [...] Comments Blood Pressure 104/76 02/17/2022 12:12 PM UNHAIRER Pulse 98 02/17/2022 12:12 PM UNHAIRER Temperature 36.4 ??C (97.6 ??F) 02/17/2022 1 2:12 PM UNHAIRER Respiratory Rate 16 02/17/2022 12:1 2 PM UNHAIRER Oxygen Saturation 94% 02/17/2022 12: 12 PM UNHAIRER Inhaled Oxygen Concentration - - Weight 101.6 kg (223 lb 14.4 oz) 02/17/2022 1:40 AM UNHAIRER Height 170.2 cm (5' 7) 02/17/2022 1:40 AM UNHAIRER Body Mass Index 35.07 02/17/2022 1:40 AM UNHAIRER Plan of Treatment Upcoming Encounters Date Type Department Care Team (Late st Contact Info) Description 10/21/2023 10:00 AM CDT Office Visit [facility] [address] [place] [address] Gabriela Briceno MD [facility] AND [address] [address] Aleida White MD [address] [place] [address] [address] [place] [address] Health Maintenance Due Date Last Done Comments ADVANCE CARE PLANNING 1981 ANNUAL REVIEW OF HM ORDERS 1981 MAMMO SCREENING 1981 YEARLY PREVENTIVE VISIT 1981 HIV SCREENING 1996 HEPATITIS C SCREENING 11/24/1999 HEPATITIS B IMMUNIZATION (1 of 3 - 19+ 3-dose series) 2000 PAP 2002 LIPID 2021 COVID-19 Vaccine (4 - 2022-2 4 season) 2022 05/03/2021, 07/03/2020, 06/09/2020 PHQ-2 (once per calendar year) 2023 INFLUENZA VACCINE (Season Ended) 2023 11/11/2019 GLUCOSE 02/17/2025 02/17/2022, 02/16/2022 DTAP/TDAP/TD IMMUNIZATION (2 [...] RESULT - HIM SCAN 04/14/2023 12:00 AM UNHAIRER LAB RESULT - HIM SCAN 04/14/2023 12:00 AM UNHAIRER BASIC METABOLIC PANEL Routine 02/17/2022 7:34 AM UNHAIRER from Last 3 Months or Most Recently Relevant to Health Maintenance Results * LAB RESULT - HIM SCAN (04/14/2023 12:00 AM UNHAIRER) Only the most recent of2 resultswithin the time period is included. 04/14/2023 Provider Outside NON-BEAKER LAB TE STING * (ABNORMAL) Basic metabolic panel (02/17/2022 7:34 AM UNHAIRER) Sodium 138 136 - 145 mmol/L 02/17/2022 8:08 AM UNHAIRER [facility] Potassium 3.8 3.4 - 5.3 mmol/L 02/17/2022 8:08 AM [facility] Chloride 106 98 - 107 mmol/L 02/17/2022 8:08 AM [facility] Carbon Dioxide (CO2) 24 22 - 29 mmol/L 02/17/2022 8:08 AM [facility] Anion Gap 8 7 - 15 mmol/L 02/17/2022 8:08 AM [facility] Urea Nitrogen 8.9 6.0 - 20.0 mg/dL 02/17/2022 8:08 AM [facility] Creatinine 0.60 0.51 - 0.95 mg/dL 02/17/2022 8:08 AM [facility] Calcium 8.1(L) 8.6 - 10.0 mg/dL 02/17/2022 8:08 AM [facility] Glucose 93 70 - 99 mg/dL 02/17/2022 8:08 AM [facility] GFR Estimate >90 >60 mL/min/1.7 3m2 02/17/2022 8:08 AM [facility] Comment:Effective January 172020 eGFRcr in adults is calculated using the 2020 CKD-EPI creatinine equation which includes age and gender (Wm et al., NEJM, DOI: 10.1056/MSWDof4814930) Blood STRUCTURE OF LEFT UPPER LIMB / Unknown Venipuncture / Unknown 02/17/2022 7:34 AM UNHAIRER 02/17/2022 7:45 AM [facility] Blaire Travis PA-C LAB - BLOOD ORDER [facility] [address] Lab (1st floor, no room number) [place] [address], [facility] [phone] from Last 3 Months or Most Recently Relevant to Health Maintenance Advance Directives For more information, please contact: [phone] * Full Code (Latest Code Status on File) Date Activated Date Inactivated Comments 02/17/2022 1:15 AM 02/17/2022 2:31 PM All basic and advanced life-sustaining interventions are performed as appropriate Question Answer Comments Code status determined by: Discussion with shawn nt/ legal decision maker Care Teams Talent Acquisition Administrator Relationship Specialty Start Date End Date [facility]- [address] [place] [address] PCP - General 02/16/22 Aleida White MD [address] [place] [address] Hospitalist Endocrinology, Diabetes, and Metabolism 04/15/23
--- OUTSIDE RECORDS SUMMARY | 2023-07-01 08:24 | XMS_ITS | Data Portability ---
Author Name Unknown Address [address] [place] [address] Phone [phone] Organization [place] [facility] Address [address] [facility] [address] [place] [address] Care Team Providers Care Customer Account Executive Name Role Phone HUA LYNCH Referring Provider [...] guarding habits to decrease pain by 50% termite technician goals-6 weeks Client to demonstrate independence in [...] guarding habits to decrease pain by 50% termite technician goals-6 weeks Client to demonstrate independence in [...] 2019 020 SRI Tay, Jihan Kim, [address], [place], [address], 0 10:30:11 physical therapist referral 2019 020 Ji[address] Mitchell [address], [place], [address], 0 09:09:05 physical therapist referral 2018 019 Stewart, Ji[address], [address], [place], [address], 9 11:49:14 Procedures None recorded. Surgeries None recorded. Imaging None recorded. Medication Orders None recorded. Patient TargetsNo targets recorded. Patient Instructions Encounter Date Encounter Id Patient Instructions Last Modified By Organization Details Last Modified Time 02/23/2019 [id number] oral appliance preparation* SRI Not available 03/16/2019 10:43:27 Self Care for TMD csather Not availabl e 02/23/2019 13:42:49 02/21/2019 [id number] oral appliance preparation* SRI Not available 02/23/2019 09:09:15 Self Care for TMD csather Not availabl e 02/21/2019 11:02:57 01/25/2019 [id number] oral appliance preparation* Not available 01/25/2019 11:49:14 [...] stabil izatio n applia nce Not Available Stewart [address] [facility] [address], [place], [address], 01/25/2019 11:46:59 01/26/20 19 XR, ortho panto gram No observ ation record ed. [email or web address] Not Available 01/25/2019 10:36:17 Result Notes None recorded. 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 left disc displacement with reduction; right disc displacement without reduction- closed lock EVELYN Smith [facility] 9 11:45:28 Arthralgia of temporomandibular joint Active 2018 EVELYN Smith [facility] 9 11:45:03 Limited opening of mandible Active 2018 Gabriela Madison gatica [facility] 9 11:45:04 Tension-type headache Active 2018 Gabriela Madison gatica [facility] 9 11:45:04 Otalgia of right ear Active 2018 Gabriela Madison gatica [facility] 9 11:45:06 Problem Notes None recorded. Procedures Surgical History Date Name Laterality Status Provider Name and Address Organization Details Recorded Time 02/23/19 21761: Therapeutic Exercise completed Noel gatica [facility] 02/23/2019 13:03:47 02/23/19 62037: Manual Therapy completed Noel gatica [facility] 02/23/2019 13:42:15 02/21/19 95827 PT Eval - Low Complexity completed Noel gatica [facility] 02/21/2019 10:59:27 02/21/19 68204: Therapeutic Exercise completed Noel gatica [facility] 02/21/2019 11:00:00 02/21/19 76572: Manual Therapy completed Noel gatica [facility] 02/21/2019 10:59:57 01/26/20 19 Orthopantogram completed Gabriela gatica [facility] 01/25/2019 11:06:06 [...] Updated DateTime 9 170.18 cm 31.3 kg/m2 57171.4 7 g 80 /min 119 mm[Hg] 79 mm[Hg] Jeancarlos Huggins [facility] 9 10:11:18 Social History Question Answer Notes LastModified by Organizat ion Details LastModified Time Tobacco Smoking Status Never Smoker Jeancarlos Girondionyanahi en [facility] 01/25/2019 [...] t available 01/25/2019 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 not available 01/25/2019 Live Alone Or [...] Other N MRSA N Head Trauma/Injury Y Glaucoma N Lung Disease N Depression Y COPD N Pneumonia N Pacemaker N Obstructive Sleep Apnea N Anxiety Disorder N Muscle, Joint, or Bone Problems N Autoimmune disease N Vision or Eye Problems N Arthritis N Acid Reflux (GERD) N Cancer N Stroke N Back Injury N High Cholesterol N Liver Disease N Organ Transplant N Rheumatoid Arthritis N Fibromyalgia N Headaches N Kidney Disease N Allergies/Hayfever N Parkinson's Disease N Post traumatic stress disorder (PTSD) N Migraines N Brain Tumors N Anemia N Multiple Sclerosis N Heart Attack ([place]) N Stomach Ulcers N Diabetes N Bleeding Disorder N Seizures/Epilepsy N Tuberculosis N AIDS/HIV N Dementia N Asthma N Substance Abuse N Vertigo N Sleep Disorder N Hepatitis N Heart Disease N Neuropathy N Pulmonary Embolism N Hypertension Y Osteoporosis N Gynecological HistoryNo gynecological history recorded. Obstetrics History GPAL:G 0 P 0 0 0 0 Past Encounters Encounter ID Performer Location Encounter Start Date Encounter Closed Date Diagnosis/Indication Diagnosis SNOMED-CT Code [id number] Gabriela Pettit [address] [place], [place] [id number] 01/25/2019 09:54:02 01/25/2019 11:27:09 Limited opening of mandible 016871752 Tension-type headache 39 1822821 Otalgia of right ear 109 741224636383 5 Articular disc disorder of temporomandibular joint 71443874 Arthralgia of temporomandibular joint 19172063 Myofascial pain 49235049 9 [id number] Noel Shah Rayray e [address] [place] [id number] 02/21/2019 10:01:11 02/21/2019 13:14:37 Articular disc disorder of temporomandibular joint 42557417 Myofascial pain 69544776 9 Arthralgia of temporomandibular joint 06263518 Limited op ening of mandible 363145230 Tension-type headache 39 8610030 [id number] Noel Alyssa Rayray hu [address] [place] PETTIT [id number] 02/23/2019 12:57:36 02/23/2019 13:32:02 Articular disc disorder of temporomandibular joint 02072782 Myofascial pain 70958037 9 Arthralgia of temporomandibular joint 74385586 Limited op ening of mandible 362688669 Tension-type headache 39 9359059 Health Concerns Section Related Observation LastModified by Organization Detai ls LastModified Time None Recorded Concern Status LastModified by Organization Details LastModified Time None Recorded Advance Directives Directive None Recorded Payers Encounter Date Sequence Insurance Name Policy Number Policy Lynch Covered Member ID Lynch Member ID Guarantor Name 02/23/2019 1 [place] Yung Brice [id number] Yung Brice 02/21/2019 1 [place] Brice [id number] Yung Brice 01/25/2019 1 [place] Yung Brice [id number] Yung Brice Notes Date Note Type [...] that her jaw is locked. Gabriela gatica [facility] 01/25/2019 11:49:18 [...] pain 02/25 right now. EVELYN [place] - [facility] 02/21/2019 11:09:44 [...] slightly easier to eat EVELYN [place] - [facility] 02/23/2019 13:42:53 OBGyn Episode No OBEpisode recorded.
--- OUTSIDE RECORDS SUMMARY | 2023-07-01 08:24 | XMS_ITS | Encounter Summary ---
Author Name Unknown Organization [place] Address [facility] [place] [address] Care Team Providers Care Last Cleaner Name Role Phone [facility], [facility]- Primary Care Provider Aleida White MD Unavailable [phone] Reason for Referral * Consultation (Routine) - Pending Review Specialty Diagnoses / Procedures Referred By Vicente guzman Referred To Contact Endocrinology, Diabetes, and Metabolism Diagnoses Nontoxic single thyroid nodule Nontoxic goiter, unspecified Gabriela Briceno MD [facility] [address] [place] [address] Referral ID Status Reason Start Date Expiration Date V isits Requested Visits Authorized [id number] Pending Review 04/15/2023 04/14/2024 1 1 Question Answer Reason for Referral: Thyroid Scheduling Instructions: [employer] will call you to coordinate your care as prescribed by the provider. If you don? t hear from a account maintenance representative within 2 business days, please call [phone]. Comments Referred by: Gabriela Briceno MD [facility] [address] [place] [address] Please be aware that coverage of these services is subject to the terms and limitations of your health insurance plan. Call member services at your health plan with any benefit or coverage questions. [employer] will call you to coordinate your care as prescribed by the provider. If you don? t hear from a account maintenance representative within 2 business days, please call [phone]. KER OPERATOR Encounter Details Date Type Department Care Team [...] CDT Office Visit [facility] [address] [facility] [address] [place] [address] Gabriela Briceno MD [address] [id number] Aleida White MD [address] [place], [place] [address] Scheduled Referrals Name Type Priority Associated Diagnoses Orde r Schedule Adult Endocrinology Cadmium Burner Referral Referral Routine Nontoxic single thyroid nodule Nontoxic goiter, unspecified Expected: 04/15/2023 (Approximate), Expires: 04/15/2024 documented as of this encounter Visit Diagnoses Diagnosis Nontoxic single thyroid nodule- Primary Nontoxic uninodular goiter Nontoxic goiter, unspecified documented in this encounter Care Teams Last Cleaner Relationship Specialty Start Date End Date [facility]- [address] [place] [address] PCP - General 02/16/22 Aleida White MD [address] [place], [place] [address] Hospitalist Endocrinology, Diabetes, and Metabolism 04/15/23 documented as of this encounter
--- OUTSIDE RECORDS SUMMARY | 2023-07-01 08:24 | XMS_ITS | Clinical Summary ---
Author Name Unknown Organization [facility] Address [address] [place] [address] Care Team Providers Care Wild Life Manager Name Role Phone Unavailable Primary Care Provider [...] for each transition of care or referral. [facility] Allergies No known active allergies Medications Medication [...] Done Comments Cervical Cancer Screening Due 1981 Hep C Screening (Preventive Services) 1981 HIV Screening (Preventive Services) 1997 Adult Preventive Visit 11/24/1999 HepB (1) 2000 COVID-19 Vaccine (4 - 2022-2 4 season) 2022 05/03/2021, 07/03/2020, 06/09/2020 Influenza (Season Ended) 2023 11/11/2019 DTaP/Tdap/Td (2 - Tdap) 02/16/2029 02/16/2019 [...]
--- OUTSIDE RECORDS SUMMARY | 2023-07-01 08:24 | XMS_ITS | Clinical Summary ---
Author Name Unknown Organization [facility] Address [place], [place] [address] Care Team Providers Care Wildfire Prevention Specialist Name Role Phone Clinic, No Pcp [...] T Respiratory Rate 20 03/22/2018 9:49 AM AUTOCUTTER Oxygen Saturation 96% 03/22/2018 9:49 AM AUTOCUTTER Inhaled Oxygen Concentration - - Weight 92.1 [...] Procedure Name Priority Date/Time Associated Diagnosis Comments VAN OWNER OPERATOR THIN PREP PAP SCREEN IMAGED Routine 02/22/2019 1:00 PM AUTOCUTTER from Last 3 Months or Most Recently Relevant to Health Maintenance Results * VAN OWNER OPERATOR THIN PREP PAP SCREEN IMAGED (02/22/2019 1:00 PM AUTOCUTTER) Case Report Gynecologic Cytology Report ? Case: [id number] ? Authorizing Provider: ??Selena Kamara NP ? Collected: ? 02/22/2019 1300 ? Ordering Location: ? [facility] ?Received: ?02/23/2019 1708 ? First Screen: ?Peter Conde ? Specimen: ?VAN OWNER OPERATOR ThinPrep Vial Screening, Cervical/Vaginal ? 03/02/2019 2:18 PM [facility] INTERPRETATION/ RESULT NEGATIVE FOR INTRAEPITHELIAL LESION OR MALIGNANCY (NIL) (none) 03/02/2019 2:18 PM [facility] IMEN ADEQUACY Satisfactory for evaluation Endocervical component present 03/02/2019 2:18 PM [facility] HPV REQUEST HPV and PAP 03/02/2019 2:18 PM [facility] Date of LMP 02/08/2019 03/02/2019 2:18 PM [facility] Last Pap Date 03/02/2019 2:18 PM [facility] Comment:unknown Additional Information 03/02/2019 2:18 PM [facility] Comment: Interpreted at [facility], Central Laboratory - [address] [facility] [address], [place] [address] Automated Review Successful 03/02/2019 2:18 PM [facility] Comment:Specimen processed s uccessfully by automated political advisor device, ThinPrep Imaging System, [employer] ANCILLARY TESTING VAN OWNER OPERATOR HPV Ordered, Please see separate report 03/02/2019 2:18 PM [facility] Note The pap test is a screening technique, not a diagnostic procedure. It is used primarily to screen for squamous cancers and precursor lesions. Published studies have shown that it is subject to both false negative and false positive results. The pap test should not be used as the sole means to diagnose or exclude pre-malignant and malignant lesions. 03/02/2019 2:18 PM [facility] Other (Cervical/Vagina l) 02/22/2019 1:00 PM AUTOCUTTER 02/23/2019 5:08 PM AUTOCUTTER Selena Kamara NP [facility]OLOG[facility] [address] [place] [address], [place] from Last 3 Months or Most Recently Relevant to Health Maintenance Care Teams Wildfire Prevention Specialist Relationship Specialty Start Date End Date Clinic, No Pcp Or . PCP - General 03/22/18
--- OUTSIDE RECORDS SUMMARY | 2023-07-01 08:24 | XMS_ITS | Referral Summary ---
Author Name Unknown Organization [place] Address [address] [facility] [place] [address] Care Team Providers Care Manager Outpatient Name Role Phone [facility]- Primary Care Provider Aleida White MD Unavailable [phone] Encounters Date Type Department Care Team Description 04/15/2023 Transcribe Orders GENERIC EXTERNAL DATA DEPARTMENT Provider, Generic External Data Nontoxic single thyroid nodule (Primary Dx); Nontoxic goiter, unspecified 04/14/2023 Medical Correspondence [facility] [address] [place] [address] Scan, Non-Provider from Last 3 [...] Comments Blood Pressure 104/76 02/17/2022 12:12 PM PREKINDERGARTEN TEACHER Pulse 98 02/17/2022 12:12 PM PREKINDERGARTEN TEACHER Temperature 36.4 ??C (97.6 ??F) 02/17/2022 1 2:12 PM PREKINDERGARTEN TEACHER Respiratory Rate 16 02/17/2022 12:1 2 PM PREKINDERGARTEN TEACHER Oxygen Saturation 94% 02/17/2022 12: 12 PM PREKINDERGARTEN TEACHER Inhaled Oxygen Concentration - - Weight 101.6 kg (223 lb 14.4 oz) 02/17/2022 1:40 AM PREKINDERGARTEN TEACHER Height 170.2 cm (5' 7) 02/17/2022 1:40 AM PREKINDERGARTEN TEACHER Body Mass Index 35.07 02/17/2022 1:40 AM PREKINDERGARTEN TEACHER Plan of Treatment Upcoming Encounters Date Type Department Care Team (Late st Contact Info) Description 10/21/2023 10:00 AM CDT Office Visit [facility] [address] [place] [address] Gabriela Briceno MD [facility] AND [address] [address] Aleida White MD [address] [place] [address] [address] [place] [address] Procedures Procedure Name Priority Date/Time Associated Diagnosis Comments LAB RESULT - HIM SCAN 04/14/2023 12:00 AM PREKINDERGARTEN TEACHER LAB RESULT - HIM SCAN 04/14/2023 12:00 AM PREKINDERGARTEN TEACHER BASIC METABOLIC PANEL Routine 02/17/2022 7:34 AM PREKINDERGARTEN TEACHER from Last 3 Months or Most Recently Relevant to Health Maintenance Results * LAB RESULT - HIM SCAN (04/14/2023 12:00 AM PREKINDERGARTEN TEACHER) Only the most recent of2 resultswithin the time period is included. 04/14/2023 Provider Outside NON-BEAKER LAB TE STING * (ABNORMAL) Basic metabolic panel (02/17/2022 7:34 AM PREKINDERGARTEN TEACHER) Sodium 138 136 - 145 mmol/L 02/17/2022 8:08 AM [facility] Potassium 3.8 3.4 - 5.3 mmol/L 02/17/2022 8:08 AM [facility] Chloride 106 98 - 107 mmol/L 02/17/2022 8:08 AM [facility] Carbon Dioxide (CO2) 24 22 - 29 mmol/L 02/17/2022 8:08 AM [facility] Anion Gap 8 7 - 15 mmol/L 02/17/2022 8:08 AM [facility] Urea Nitrogen 8.9 6.0 - 20.0 mg/dL 02/17/2022 8:08 AM [facility] Creatinine 0.60 0.51 - 0.95 mg/dL 02/17/2022 8:08 AM [facility] Calcium 8.1(L) 8.6 - 10.0 mg/dL 02/17/2022 8:08 AM [facility] Glucose 93 70 - 99 mg/dL 02/17/2022 8:08 AM [facility] GFR Estimate >90 >60 mL/min/1.7 3m2 02/17/2022 8:08 AM [facility] Comment:Effective January 172020 eGFRcr in adults is calculated using the 2020 CKD-EPI creatinine equation which includes age and gender (Wm et al., NEJM, DOI: 10.1056/XOHTru6437696) Blood STRUCTURE OF LEFT UPPER LIMB / Unknown Venipuncture / Unknown 02/17/2022 7:34 AM PREKINDERGARTEN TEACHER 02/17/2022 7:45 AM PREKINDERGARTEN TEACHER Blaire Travis PA-C LAB - BLOOD ORDER LYNSEY [facility] [address] Lab (1st floor, no room number) [place] [address], [facility] [phone] from Last 3 Months or Most Recently Relevant to Health Maintenance Advance Directives For more information, please contact: [phone] * Full Code (Latest Code Status on File) Date Activated Date Inactivated Comments 02/17/2022 1:15 AM 02/17/2022 2:31 PM All basic and advanced life-sustaining interventions are performed as appropriate Question Answer Comments Code status determined by: Discussion with shawn nt/ legal decision maker Care Teams Manager Outpatient Relationship Specialty Start Date End Date [facility]- [address] [place] [address] PCP - General 02/16/22 Aleida White MD [address] [place] [address] Hospitalist Endocrinology, Diabetes, and Metabolism 04/15/23
--- NOTE | 2023-07-01 08:45 | MM_ITS ---
Patient: ANTONI MCCARTNEY Facility:?[facility] Patient ID:?[id number] Site Patient ID:?[id number] Site :?1980 Study:?XRay-Breast Bilateral 3D W/CAD-07/01/2023 9:05:45 AM Ordering Physician:Gabriela Santamaria Final Report: DIGITAL DIAGNOSTIC BILATERAL MAMMOGRAM USING TOMOSYNTHESIS AND COMPUTER-AIDED DETECTION RIGHT BREAST ULTRASOUND CLINICAL HISTORY: RIGHT breast mass/asymmetry, LEFT breast calcifications. COMPARISON: 06/11/2023. TECHNIQUE: Digital BILATERAL mammogram in five projections. Tomosynthesis and computer- aided detection utilized. Real-time ultrasound imaging of RIGHT breast with imaging documentation. BREAST COMPOSITION: The breasts are heterogeneously dense, which may obscure small masses. FINDINGS: 3D spot compression CC RIGHT breast mammogram images submitted. Persistent nodular density is present without architectural distortion. Targeted RIGHT breast ultrasound performed 7 o`clock 6 cm from the nipple performed with macrolobular circumscribed margins measuring 2.1 x 1.0 x 1.6 cm. Spot magnification CC/ML LEFT breast mammogram images submitted along with an open 2D ML LEFT breast mammogram. Layering calcifications are present without pleomorphism or suspicious mass. No architectural distortion. IMPRESSION: 1. Benign milk of calcium LEFT breast. 2. Solid hypoechoic nodule RIGHT breast 7 o`clock 6 cm from the nipple measuring 2.1 cm, likely fibroadenoma. RECOMMENDATIONS: Ultrasound-guided core needle biopsy RIGHT breast recommended. Results and recommendations discussed with the patient. BI-RADS Category 4: Suspicious A lay language report of this examination will be provided to the patient. Dictated by Shiva Staton MD @ 07/01/2023 9:21:20 AM jj/Dictated by: Shiva Staton MD @ 07/01/2023 9:21:00 AM Signed by:?Shiva Staton MD @07/01/2023 1:04:24 PM (Electronic Signature)
--- NOTE | 2023-07-01 09:15 | US_ITS ---
Patient: ANTONI MCCARTNEY Facility:?[facility] Patient ID:?[id number] Site Patient ID:?[id number] Site :?1980 Study:?XRay-Breast Bilateral 3D W/CAD-07/01/2023 9:05:45 AM Ordering Physician:Gabriela Santamaria Final Report: DIGITAL DIAGNOSTIC BILATERAL MAMMOGRAM USING TOMOSYNTHESIS AND COMPUTER-AIDED DETECTION RIGHT BREAST ULTRASOUND CLINICAL HISTORY: RIGHT breast mass/asymmetry, LEFT breast calcifications. COMPARISON: 06/11/2023. TECHNIQUE: Digital BILATERAL mammogram in five projections. Tomosynthesis and computer- aided detection utilized. Real-time ultrasound imaging of RIGHT breast with imaging documentation. BREAST COMPOSITION: The breasts are heterogeneously dense, which may obscure small masses. FINDINGS: 3D spot compression CC RIGHT breast mammogram images submitted. Persistent nodular density is present without architectural distortion. Targeted RIGHT breast ultrasound performed 7 o`clock 6 cm from the nipple performed with macrolobular circumscribed margins measuring 2.1 x 1.0 x 1.6 cm. Spot magnification CC/ML LEFT breast mammogram images submitted along with an open 2D ML LEFT breast mammogram. Layering calcifications are present without pleomorphism or suspicious mass. No architectural distortion. IMPRESSION: 1. Benign milk of calcium LEFT breast. 2. Solid hypoechoic nodule RIGHT breast 7 o`clock 6 cm from the nipple measuring 2.1 cm, likely fibroadenoma. RECOMMENDATIONS: Ultrasound-guided core needle biopsy RIGHT breast recommended. Results and recommendations discussed with the patient. BI-RADS Category 4: Suspicious A lay language report of this examination will be provided to the patient. Dictated by Shiva Staton MD @ 07/01/2023 9:21:20 AM jj/Dictated by: Shiva Staton MD @ 07/01/2023 9:21:00 AM Signed by:?Shiva Staton MD @07/01/2023 1:04:24 PM (Electronic Signature
== END 2023-07-01 08:22 | disposition home or self-care (01) ==
LOC: MAMMO 08:21
PROVIDERS: Visit Provider Family Medicine
DX: N63.10 Unspecified lump in the right breast, unspecified quadrant (principal); R92.8 Other abnormal and inconclusive findings on diagnostic imaging of breast
CPT/HCPCS: 76642; 77066; G0279

== ENCOUNTER 2023-07-09 10:55 | Outpatient (CLI) | payer BC, SELFPAY ==
--- OUTSIDE RECORDS SUMMARY | 2023-07-09 11:01 | XMS_ITS | Clinical Summary ---
Author Organization [facility] Address [place], [place] [address] Care Team Providers Care Senior Php Software Developer Name Role Phone Clinic, No Pcp Or [...] T Respiratory Rate 20 03/22/2018 9:49 AM DEVELOPER [employer] Oxygen Saturation 96% 03/22/2018 9:49 AM DEVELOPER [employer] Inhaled Oxygen Concentration - - Weight 92.1 [...] 21-65 02/22/2022 0, 02/22/2019 COVID-19 vaccine series (2022-24 season) 2022 Influenza for age 9-49 10/18/2023 Pneumococcal series for age 6-64 Aged Out No longer eligible b ased on patient's age to complete this topic Procedures Procedure Name Priority Date/Time Associated Diagnosis Comments WEB DEVELOPMENT CONSULTANT THIN PREP PAP SCREEN IMAGED Routine 02/22/2019 1:00 PM DEVELOPER [employer] from Last 3 Months or Most Recently Relevant to Health Maintenance Results * WEB DEVELOPMENT CONSULTANT THIN PREP PAP SCREEN IMAGED (02/22/2019 1:00 PM [employer]EL[employer]) Case Report Gynecologic Cytology Report ? Case: [id number] ? Authorizing Provider: ??Selena Kamara NP ? Collected: ? 02/22/2019 1300 ? Ordering Location: ? [facility] ?Received: ?02/23/2019 1708 ? First Screen: ?Peter Conde ? Specimen: ?WEB DEVELOPMENT CONSULTANT ThinPrep Vial Screening, Cervical/Vaginal ? 03/02/2019 2:18 PM [facility] INTERPRETATION/ RESULT NEGATIVE FOR INTRAEPITHELIAL LESION OR MALIGNANCY (NIL) (none) 03/02/2019 2:18 PM [facility] IMEN ADEQUACY Satisfactory for evaluation Endocervical component present 03/02/2019 2:18 PM [facility] HPV REQUEST HPV and PAP 03/02/2019 2:18 PM [facility] Date of LMP 02/08/2019 03/02/2019 2:18 PM [facility] Last Pap Date 03/02/2019 2:18 PM [facility] Comment:unknown Additional Information 03/02/2019 2:18 PM [facility] Comment: Interpreted at [facility] Central Laboratory - [address], [place] [address] Automated Review Successful 03/02/2019 2:18 PM [facility] Comment:Specimen processed s uccessfully by automated operator coating furnace device, ThinPrep Imaging System, [employer] ANCILLARY TESTING WEB DEVELOPMENT CONSULTANT HPV Ordered, Please see separate report 03/02/2019 2:18 PM [facility] Note The pap test is a screening technique, not a diagnostic procedure. It is used primarily to screen for squamous cancers and precursor lesions. Published studies have shown that it is subject to both false negative and false positive results. The pap test should not be used as the sole means to diagnose or exclude pre-malignant and malignant lesions. 03/02/2019 2:18 PM [facility] Other (Cervical/Vagina l) 02/22/2019 1:00 PM DEVELOPER [employer] 02/23/2019 5:08 PM DEVELOPER [employer] Selena Kamara NP PATHOLOGY/CYTOLOGY [facility] [address] [place] [address], [place] from Last 3 Months or Most Recently Relevant to Health Maintenance Care Teams Senior Php Software Developer Relationship Specialty Start Date End Date Clinic, No Pcp Or . PCP - General 03/22/18
--- OUTSIDE RECORDS SUMMARY | 2023-07-09 11:01 | XMS_ITS | Encounter Summary ---
Author Organization [facility] Address [address] [place] [address]. [place] [address] Care Team Providers Care Improvement Analyst Name Role Phone [facility]- Primary Care Provider Aleida White MD Unavailable [phone] Reason for Referral * Consultation (Routine) - Pending Review Specialty Diagnoses / Procedures Referred By Vicente guzman Referred To Contact Endocrinology, Diabetes, and Metabolism Diagnoses Nontoxic single thyroid nodule Nontoxic goiter, unspecified Gabriela Briceno MD [facility] [address] [place] [address] Referral ID Status Reason Start Date Expiration Date V isits Requested Visits Authorized [id number] Pending Review 04/15/2023 04/14/2024 1 1 Question Answer Reason for Referral: Thyroid Scheduling Instructions: [employer] will call you to coordinate your care as prescribed by the provider. If you don? t hear from a customer account representative within 2 business days, please call [phone]. Comments Referred by: Gabriela Briceno MD [facility] [address] [place] [address] Please be aware that coverage of these services is subject to the terms and limitations of your health insurance plan. Call member services at your health plan with any benefit or coverage questions. [employer] will call you to coordinate your care as prescribed by the provider. If you don? t hear from a customer account representative within 2 business days, please call [phone]. ER REP Encounter Details Date Type Department Care Team [...] Description 10/21/2023 10:00 AM CDT Office Visit [facility] [address] [facility] [address] [place] [phone] Gabriela Briceno MD [address] [address] Aleida White MD [address] [facility] [address] [place] [address] Scheduled Referrals Name Type Priority Associated Diagnoses Orde r Schedule Adult Endocrinology Tie Fastener Referral Referral Routine Nontoxic single thyroid nodule Nontoxic goiter, unspecified Expected: 04/15/2023 (Approximate), Expires: 04/15/2024 documented as of this encounter Visit Diagnoses Diagnosis Nontoxic single thyroid nodule- Primary Nontoxic uninodular goiter Nontoxic goiter, unspecified documented in this encounter Care Teams Improvement Analyst Relationship Specialty Start Date End Date [facility]- [address] [place] [address] PCP - General 02/16/22 Aleida White MD [address] [place] [address] Hospitalist Endocrinology, Diabetes, and Metabolism 04/15/23 documented as of this encounter
--- OUTSIDE RECORDS SUMMARY | 2023-07-09 11:01 | XMS_ITS | Encounter Summary ---
Author Organization [facility] Address [address] [facility] [place] [address] Care Team Providers Care It Manager Name Role Phone [facility]- Primary Care Provider Aleida White MD Unavailable [phone] Encounter Details Date Type Department Care Team (Late Contact Info) Description 04/14/2023 Medical Correspondence [facility] [address] [place] [address] Scan, Non-Provider Social History Tobacco Use [...] Encounters Date Type Department Care Team (Late Contact Info) Description 10/21/2023 10:00 AM CDT Office Visit [facility] [address] [place] [address] Gabriela Briceno MD [facility] [address] [place] [address] Aleida White MD [address] [place] [address] documented as of this encounter Visit Diagnoses Not on filedocumented in this encounter Care Teams It Manager Relationship Specialty Start Date End Date [facility]- [address] [place] [address] PCP - General 02/16/22 Aleida White MD [address] [place] [address] Hospitalist Endocrinology, Diabetes, and Metabolism 04/15/23 documented as of this encounter
--- OUTSIDE RECORDS SUMMARY | 2023-07-09 11:01 | XMS_ITS | Data Portability ---
Author Organization [place] [facility] Address [facility] [address] [place] [address] Care Team Providers Care Mailing Machine Helper Name Role Phone HUA LYNCH Referring Provider [phone] Assessment Encounter Date Assessment Date Assessment LastModified [...] guarding habits to decrease pain by 50% equipment operator intermodal yard goals-6 weeks Client to demonstrate independence in [...] guarding habits to decrease pain by 50% senior living goals-6 weeks Client to demonstrate independence in [...] physical therapist referral 2019 020 SRI Tay, Jermaine[address], [place], [address], 0 10:30:11 physical therapist referral 2019 020 SRI Tay, Jermaine[address], [place], [address], 0 09:09:05 physical therapist referral 2018 019 [place], [facility] [address], [place], [address], 9 11:49:14 Procedures None recorded. Surgeries None recorded. Imaging None recorded. Medication Orders None recorded. Patient TargetsNo targets recorded. Patient Instructions Encounter Date Encounter Id Patient Instructions Last Modified By Organization Details Last Modified Time 02/23/2019 [id number] oral appliance preparation* SRI Not available 03/16/2019 10:43:27 Self Care for TMD csather Not availabl e 02/23/2019 13:42:49 02/21/2019 [id number] oral appliance preparation* SRI Not available 02/23/2019 09:09:15 Self Care for TMD csather Not availabl e 02/21/2019 11:02:57 01/25/2019 [id number] oral appliance preparation* Not available 01/25/2019 11:49:14 [...] stabil izatio n applia nce Not Available [place] [address] [facility] [address], [place], [address], 01/25/2019 11:46:59 01/26/20 19 XR, ortho panto gram No observ ation record ed. [email or web address] Not Available 01/25/2019 10:36:17 Result Notes None recorded. 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 Procedures Surgical History Date Name Laterality Status Provider Name and Address Organization Details Recorded Time 02/23/19 67858: Therapeutic Exercise completed Noel gatica [facility] 02/23/2019 13:03:47 02/23/19 94255: Manual Therapy completed Noel gatica [facility] 02/23/2019 13:42:15 02/21/19 48771 PT Eval - Low Complexity completed Noel gatica [facility] 02/21/2019 10:59:27 02/21/19 88120: Therapeutic Exercise completed Noel gatica [facility] 02/21/2019 11:00:00 02/21/19 83313: Manual Therapy completed oNel gatica [facility] 02/21/2019 10:59:57 01/26/20 19 Orthopantogram completed Gabriela Madison gatica [facility] 01/25/2019 11:06:06 Imaging Results Imaging Date Name Status LastModified by Organization Details LastModified Time 01/25/2019 XR, orthopantogram completed doron Avalos atmelanie not available 01/25/2019 10:36:17 Procedure Notes None [...] Updated DateTime 9 170.18 cm 31.3 kg/m2 48245.4 7 g 80 /min 119 mm[Hg] 79 mm[Hg] Jeancarlos Gironkhang [facility] 9 10:11:18 Social History Question Answer Notes LastModified by Organizat ion Details LastModified Time Tobacco Smoking Status Never Smoker Jeancarlos gatica [facility] 01/25/2019 10:11:44 [...] t available 01/25/2019 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 Information not available 01/25/2019 Live Alone Or [...] Anemia N Multiple Sclerosis N Heart Attack ([place]) N Stomach Ulcers N Diabetes N Bleeding [...] Encounter Closed Date Diagnosis/Indication Diagnosis SNOMED-CT Code [id number] Gabriela Pettit [address] [place] [address] 01/25/2019 09:54:02 01/25/2019 11:27:09 Limited opening of mandible 698541775 Tension-type headache 39 0529823 Otalgia of right ear 109 366274100560 5 Articular disc disorder of temporomandibular joint 00757912 Arthralgia of temporomandibular joint 05585258 Myofascial pain 52455025 9 [id number] Noel Alyssa Rayray hu [address] RAYRAY MelecioEVELYN [address] 02/21/2019 10:01:11 02/21/2019 13:14:37 Articular disc disorder of temporomandibular joint 37192137 Myofascial pain 83181092 9 Arthralgia of temporomandibular joint 38655921 Limited op ening of mandible 628585143 Tension-type headache 39 8644851 188547 Noel Alyssa Rayray hu [address] EVELYN PETTIT [address] 02/23/2019 12:57:36 02/23/2019 13:32:02 Articular disc disorder of temporomandibular joint 15140540 Myofascial pain 87970576 9 Arthralgia of temporomandibular joint 80130278 Limited op ening of mandible 998601919 Tension-type headache 39 5045667 Health Concerns Section Related Observation LastModified by Organization Detai ls LastModified Time None Recorded Concern Status LastModified by Organization Details LastModified Time None Recorded Advance Directives Directive None Recorded Payers Encounter Date Sequence Insurance Name Policy Number Policy Lynch Covered Member ID Lynch Member ID Guarantor Name 02/23/2019 1 [place] Yung Brice [id number] Yung Brice 02/21/2019 1 [place] Y[place] Brice [id number] Yung Brice 01/25/2019 1 [place] Y[place] Brice [id number] Yung Brice Notes Date Note Type [...] that her jaw is locked. Gabriela gatica [facility] 01/25/2019 11:49:18 [...] pain 02/25 right now. EVELYN Gaffney - [facility] 02/21/2019 11:09:44 [...] slightly easier to eat EVELYN Gaffney - [facility] 02/23/2019 13:42:53 OBGyn Episode No OBEpisode recorded.
--- OUTSIDE RECORDS SUMMARY | 2023-07-09 11:01 | XMS_ITS | Referral Summary ---
Author Organization [facility] Address [address] [facility] [place] [address] Care Team Providers Care Smudger Name Role Phone [facility]- Primary Care Provider Aleida White MD Unavailable [phone] Encounters Date Type Department Care Team Description 04/15/2023 Transcribe Orders GENERIC EXTERNAL DATA DEPARTMENT Provider, Generic External Data Nontoxic single thyroid nodule (Primary Dx); Nontoxic goiter, unspecified 04/14/2023 Medical Correspondence [facility] [address] [place] [address] Scan, Non-Provider from Last 3 [...] Comments Blood Pressure 104/76 02/17/2022 12:12 PM GARNISHMENT SPECIALIST Pulse 98 02/17/2022 12:12 PM GARNISHMENT SPECIALIST Temperature 36.4 ??C (97.6 ??F) 02/17/2022 1 2:12 PM GARNISHMENT SPECIALIST Respiratory Rate 16 02/17/2022 12:1 2 PM GARNISHMENT SPECIALIST Oxygen Saturation 94% 02/17/2022 12: 12 PM GARNISHMENT SPECIALIST Inhaled Oxygen Concentration - - Weight 101.6 kg (223 lb 14.4 oz) 02/17/2022 1:40 AM GARNISHMENT SPECIALIST Height 170.2 cm (5' 7) 02/17/2022 1:40 AM GARNISHMENT SPECIALIST Body Mass Index 35.07 02/17/2022 1:40 AM GARNISHMENT SPECIALIST Plan of Treatment Upcoming Encounters Date Type Department Care Team (Late st Contact Info) Description 10/21/2023 10:00 AM CDT Office Visit [facility] [address] [place] [address] [facility] AND [address] [id number] Aleida White MD [address] [place] [address] [address] [place] [address] Procedures Procedure Name Priority Date/Time Associated Diagnosis Comments POTASSIUM (EXTERNAL RESULT) Routine 04/14/2023 10:52 AM GARNISHMENT SPECIALIST CREATININE (EXTERNAL RESULT) Routine 04/14/2023 10:52 AM GARNISHMENT SPECIALIST GLUCOSE (EXTERNAL RESULT) Routine 04/14/2023 10:52 AM GARNISHMENT SPECIALIST AST (EXTERNAL RESULT) Routine 04/14/2023 10:52 AM GARNISHMENT SPECIALIST ALT (EXTERNAL RESULT) Routine 04/14/2023 10:52 AM GARNISHMENT SPECIALIST LIPID PANEL (EXTERNAL RESULT) Routine 04/14/2023 10:52 AM GARNISHMENT SPECIALIST LAB RESULT - HIM SCAN 04/14/2023 12:00 AM GARNISHMENT SPECIALIST LAB RESULT - HIM SCAN 04/14/2023 12:00 AM GARNISHMENT SPECIALIST from Last 3 Months Results * (ABNORMAL) Potassium (External Result) (04/14/2023 10:52 AM GARNISHMENT SPECIALIST) Potassium (External) 5.2(A) 3.6 - 5.1 mmol/L [facility] Blood 04/14/2023 10:5 2 AM GARNISHMENT SPECIALIST [facility] - 04/14/2023 10:52 AM GARNISHMENT SPECIALIST [facility] - External Lab Results Provider Outside LAB - HIM EXTERNAL R ESULT [facility] [address] [place] [address], [facility] [phone] * (ABNORMAL) Lipid Panel (External Result) (04/14/2023 10:52 AM GARNISHMENT SPECIALIST) Cholesterol (External) 215(A) 9 - 199 mg/dL [facility] Triglycerides (External) 172(A) 40 - 149 mg/dL [facility] HDL Cholesterol (External) 55 >=50 mg/dL [facility] LDL Cholesterol Calculated (External) 126(A) <100 mg/dL [facility] Blood 04/14/2023 10:5 2 AM GARNISHMENT SPECIALIST [facility] - 04/14/2023 10:52 AM GARNISHMENT SPECIALIST [facility] - External Lab Results Provider Outside LAB - HIM EXTERNAL R ESULT Performing Organization Address City/[facility]/ZIP Co de Phone Number [facility] [address] [place] [address], [facility] [phone] * (ABNORMAL) Glucose (External Result) (04/14/2023 10:52 AM GARNISHMENT SPECIALIST) Glucose (External) 101(A) 60 - 115 mg/dL [facility] Blood 04/14/2023 10:5 2 AM [facility] - 04/14/2023 10:52 AM [facility] - External Lab Results Provider Outside LAB - HIM EXTERNAL R ESULT Performing Organization Address [facility] Co de Phone Number [facility] [address] [place] [address], [facility] [phone] * Creatinine (External Result) (04/14/2023 10:52 AM GARNISHMENT SPECIALIST) Creatinine (External) 0.6 0.5 - 1.5 mg/dL [facility] Blood 04/14/2023 10:5 2 AM [facility] - 04/14/2023 10:52 AM [facility] - External Lab Results Provider Outside LAB - HIM EXTERNAL R ESULT Performing Organization Address [facility] Co de Phone Number [facility] [address] [place] [address], [facility] [phone] * AST (External Result) (04/14/2023 10:52 AM GARNISHMENT SPECIALIST) AST (External) 34 12 - 35 U/L [facility] Blood 04/14/2023 10:5 2 AM [facility] - 04/14/2023 10:52 AM [facility] - External Lab Results Provider Outside LAB - HIM EXTERNAL R ESULT Performing Organization Address City/[facility]/ZIP Co de Phone Number [facility] [address] [place], [place] [address] [phone] * (ABNORMAL) ALT (External Result) (04/14/2023 10:52 AM GARNISHMENT SPECIALIST) ALT (External) 39(A) 4 - 35 U/L [facility] Blood 04/14/2023 10:5 2 AM GARNISHMENT SPECIALIST Narrative [facility] - 04/14/2023 10:52 AM GARNISHMENT SPECIALIST [facility] - External Lab Results Provider Outside LAB - HIM EXTERNAL R ESULT [facility] [address] [place] [address], [facility] [phone] * LAB RESULT - HIM SCAN (04/14/2023 12:00 AM GARNISHMENT SPECIALIST) Only the most recent of2 resultswithin the time period is included. 04/14/2023 Provider Outside NON-BEAKER LAB TE STING from Last 3 Months Advance Directives For more information, please contact: [phone] * Full Code (Latest Code Status on File) Date Activated Date Inactivated Comments 02/17/2022 1:15 AM 02/17/2022 2:31 PM All basic and advanced life-sustaining interventions are performed as appropriate Question Answer Comments Code status determined by: Discussion with shawn nt/ legal decision maker Care Teams Smudger Relationship Specialty Start Date End Date [facility]- [address] [place] [address] PCP - General 02/16/22 Aleida White MD [address] [place] [address] [address] [place] [address] Hospitalist Endocrinology, Diabetes, and Metabolism 04/15/23
--- OUTSIDE RECORDS SUMMARY | 2023-07-09 11:01 | XMS_ITS | Clinical Summary ---
Author Organization [facility] Address [address] [place] [address] Care Team Providers Care Ornament Stapler Name Role Phone [facility]- Primary Care Provider Aleida White MD Unavailable [phone] Allergies No known active allergies Medications Medication [...] Dx); Nontoxic goiter, unspecified 04/14/2023 Medical Correspondence [facility] Info [facility] [address] [facility] [address] Scan, Non-Provider from Last 3 Months [...] Comments Blood Pressure 104/76 02/17/2022 12:12 PM WELL DIGGER Pulse 98 02/17/2022 12:12 PM WELL DIGGER Temperature 36.4 ??C (97.6 ??F) 02/17/2022 1 2:12 PM WELL DIGGER Respiratory Rate 16 02/17/2022 12:1 2 PM WELL DIGGER Oxygen Saturation 94% 02/17/2022 12: 12 PM WELL DIGGER Inhaled Oxygen Concentration - - Weight 101.6 kg (223 lb 14.4 oz) 02/17/2022 1:40 AM WELL DIGGER Height 170.2 cm (5' 7) 02/17/2022 1:40 AM WELL DIGGER Body Mass Index 35.07 02/17/2022 1:40 AM WELL DIGGER Plan of Treatment Upcoming Encounters Date Type Department Care Team (Late st Contact Info) Description 10/21/2023 10:00 AM CDT Office Visit [facility] [address] [place] [address] Gabriela Briceno MD [facility] AND [address] [id number] Aleida White MD [address] [place] [address] [address] [place] [address] Health Maintenance Due Date Last Done Comments ADVANCE CARE PLANNING 1981 ANNUAL REVIEW OF HM ORDERS 1981 MAMMO SCREENING 1981 YEARLY PREVENTIVE VISIT 1981 HIV SCREENING 1996 HEPATITIS C SCREENING 11/24/1999 HEPATITIS B IMMUNIZATION (1 of 3 - 19+ 3-dose series) 2000 PAP 2002 COVID-19 Vaccine (4 - 2022-2 4 season) 2022 05/03/2021, 07/03/2020, 06/09/2020 PHQ-2 (once per calendar year) 2023 INFLUENZA VACCINE (Season Ended) 2023 11/11/2019 GLUCOSE 04/14/2026 04/14/2023, 02/17/2022, 02/16/2022 LIPID 04/14/2028 04/14/2023 DTAP/TDAP/TD IMMUNIZATION (2 - Td or Tdap) [...] POTASSIUM (EXTERNAL RESULT) Routine 04/14/2023 10:52 AM WELL DIGGER CREATININE (EXTERNAL RESULT) Routine 04/14/2023 10:52 AM WELL DIGGER GLUCOSE (EXTERNAL RESULT) Routine 04/14/2023 10:52 AM WELL DIGGER AST (EXTERNAL RESULT) Routine 04/14/2023 10:52 AM WELL DIGGER ALT (EXTERNAL RESULT) Routine 04/14/2023 10:52 AM WELL DIGGER LIPID PANEL (EXTERNAL RESULT) Routine 04/14/2023 10:52 AM WELL DIGGER LAB RESULT - HIM SCAN 04/14/2023 12:00 AM WELL DIGGER LAB RESULT - HIM SCAN 04/14/2023 12:00 AM WELL DIGGER from Last 3 Months Results * (ABNORMAL) Potassium (External Result) (04/14/2023 10:52 AM WELL DIGGER) Potassium (External) 5.2(A) 3.6 - 5.1 mmol/L [facility] Blood 04/14/2023 10:5 2 AM [facility] - 04/14/2023 10:52 AM [facility] - External Lab Results Provider Outside LAB - [facility] EXTERNAL R ESULT [address] [phone] * (ABNORMAL) Lipid Panel (External Result) (04/14/2023 10:52 AM WELL DIGGER) Cholesterol (External) 215(A) 9 - 199 mg/dL [facility] Triglycerides (External) 172(A) 40 - 149 mg/dL [facility] HDL Cholesterol (External) 55 >=50 mg/dL [facility] LDL Cholesterol Calculated (External) 126(A) <100 mg/dL [facility] Blood 04/14/2023 10:5 2 AM [facility] - 04/14/2023 10:52 AM [facility] - External Lab Results Provider Outside LAB - [facility] EXTERNAL R ESULT Performing Organization Address City/[facility]/ZIP Co de Phone Number [facility] [address] [phone] * (ABNORMAL) Glucose (External Result) (04/14/2023 10:52 AM WELL DIGGER) Glucose (External) 101(A) 60 - 115 mg/dL [facility] Blood 04/14/2023 10:5 2 AM [facility] - 04/14/2023 10:52 AM [facility] - External Lab Results Provider Outside LAB - HIM EXTERNAL R ESULT Performing Organization Address City/[facility]/ZIP Co de Phone Number [facility] [address] [place], [place] [address] [phone] * Creatinine (External Result) (04/14/2023 10:52 AM WELL DIGGER) Creatinine (External) 0.6 0.5 - 1.5 mg/dL [facility] Blood 04/14/2023 10:5 2 AM [facility] - 04/14/2023 10:52 AM [facility] - External Lab Results Provider Outside LAB - HIM EXTERNAL R ESULT Performing Organization Address [facility] Co de Phone Number [facility] [address] [place], [place] [address] [phone] * AST (External Result) (04/14/2023 10:52 AM WELL DIGGER) AST (External) 34 12 - 35 U/L [facility] Blood 04/14/2023 10:5 2 AM [facility] - 04/14/2023 10:52 AM [facility] - External Lab Results Provider Outside LAB - HIM EXTERNAL R ESULT Performing Organization Address [facility] Co de Phone Number [facility] [address] [place], [place] [address] [phone] * (ABNORMAL) ALT (External Result) (04/14/2023 10:52 AM WELL DIGGER) ALT (External) 39(A) 4 - 35 U/L [facility] Blood 04/14/2023 10:5 2 AM [facility] - 04/14/2023 10:52 AM [facility] - External Lab Results Provider Outside LAB - HIM EXTERNAL R ESULT Performing Organization Address City/[facility]/ZIP Co de Phone Number [facility] [address] [place] [address], [facility] [phone] * LAB RESULT - HIM SCAN (04/14/2023 12:00 AM WELL DIGGER) Only the most recent of2 resultswithin the time period is included. 04/14/2023 Provider Outside NON-BEAKER LAB TE STING from Last 3 Months Advance Directives For more information, please contact: [phone] * Full Code (Latest Code Status on File) Date Activated Date Inactivated Comments 02/17/2022 1:15 AM 02/17/2022 2:31 PM All basic and advanced life-sustaining interventions are performed as appropriate Question Answer Comments Code status determined by: Discussion with patie nt/ legal decision maker Care Teams Ornament Stapler Relationship Specialty Start Date End Date [facility]- [address] [place] [address] PCP - General 02/16/22 Aleida White MD [address] [place] [address] Hospitalist Endocrinology, Diabetes, and Metabolism 04/15/23
--- OUTSIDE RECORDS SUMMARY | 2023-07-09 11:01 | XMS_ITS | Clinical Summary ---
Author Organization [facility] Address [address] [place] [address] Care Team Providers Care Billiard Player Name Role Phone Unavailable Primary Care Provider [...] for each transition of care or referral. [facility] Allergies No known active allergies Medications [...]
--- NOTE | 2023-07-09 11:15 | US_ITS ---
Patient: ANTONI MCCARTNEY Facility:?[facility] Patient ID:?[id number] Site Patient ID:?[id number]. Site :?[id number] Study:?US-Breast Right RT BREAST BIOPSY / DSM TO READ-07/09/2023 11:52:49 AM Ordering Physician:?Janak Ochoa Final Report: ULTRASOUND-GUIDED BREAST BIOPSY AND POST-BIOPSY DIGITAL MAMMOGRAM FOR BIOPSY MARKER PLACEMENT CLINICAL HISTORY: Indeterminate solid nodule. COMPARISON STUDIES: 07/01/2023. TECHNIQUE: Real-time ultrasound with image documentation was used for targeting the breast lesion. Core biopsy specimens were obtained using an automated gun with a 18- gauge biopsy needle. Post-biopsy CC and ML digital mammograms were obtained to document position of the biopsy marker. CONSENT and TIME OUT: The procedure, risks, and alternatives were explained to the patient and a consent was signed. Withams Protocol was followed including pre-procedure verification that relevant information/documentation was available, reviewed and properly matched to the patient; consent accurate and complete; and equipment and supplies available. Time Out was conducted just prior to starting procedure to verify the four required elements: patient identity, correct side/site marked (if applicable), procedure, relevant images/results properly labeled and displayed (if applicable). PROCEDURE: The patient was positioned supine on the ultrasound table. The breast was prepped with ChloraPrep. 8 cc of 1 percent lidocaine used for local anesthesia. Core samples were obtained. A sterile metal biopsy clip was placed percutaneously to deandre the lesion position within the breast. The specimens were placed in 10% formalin and sent to the pathology department. Pressure was held on the biopsy site until all bleeding subsided. The skin incision was closed with Steri-Strips. An ice pack was positioned over the biopsy site. Post-biopsy instructions were reviewed with the patient, and a written copy was given to her. LATERALITY: RIGHT breast. LESION: Hypoechoic solid nodule measuring 2.1 x 1.0 x 1.6 cm at 7 o`clock 6 cm from the nipple. SUSPICION FOR MALIGNANCY: Low, probable fibroadenoma. NUMBER OF SAMPLES: 6. BIOPSY CLIP SHAPE: Oval. PROXIMITY OF CLIP TO TARGET: Within the lesion. IMPRESSION: Ultrasound-guided breast biopsy. When the pathology report is available, an addendum to this report will be made. ACR not applicable Dictated by Shiva Staton MD @ 07/09/2023 12:29:52 PM jensenj/Dictated by: Shiva Staton MD @ 07/09/2023 12:29:00 PM Signed by:?Shiva Staton MD @07/09/2023 12:54:50 PM (Electronic Signature)
--- NOTE | 2023-07-09 12:00 | MM_ITS ---
Patient: ANTONI MCCARTNEY Facility:?[facility] Patient ID:?[id number] Site Patient ID:?[id number]. Site :?[id number] Study:?XRay-Breast Right 2D w/ CAD POST CLIP PLACEMENT-07/09/2023 11:48:48 AM Ordering Physician:?Janak Ochoa Final Report: PLEASE SEE ULTRASOUND-GUIDED RIGHT BREAST BIOPSY PERFORMED SAME DAY CRL:lam fritz/Dictated by: Shiva Staton MD @ 07/09/2023 12:29:00 PM Signed by:?Shiva Staton MD @07/09/2023 12:54:54 PM (Electronic Signature)
== END 2023-07-09 10:56 | disposition home or self-care (01) ==
LOC: US 10:56
PROVIDERS: Visit Provider Family Medicine
DX: N63.10 Unspecified lump in the right breast, unspecified quadrant (principal); D24.1 Benign neoplasm of right breast; R92.8 Other abnormal and inconclusive findings on diagnostic imaging of breast
CPT/HCPCS: 19083; 77065; 88305; A4648; A4649

== ENCOUNTER 2023-10-14 07:13 | Outpatient (CLI) | payer BC, SELFPAY ==
--- NOTE | 2023-10-14 07:15 | CRLHL7_ITS ---
For Patients: As a result of the Century Cures Act, medical imaging exams and procedure reports are released immediately into your electronic medical record. You may view this report before your referring provider. If you have questions, please contact your health care provider. Indication: Right thyroid nodule Technique: Thyroid ultrasound with grayscale and color Doppler images. Comparison: 09/02/2022 and 09/24/2020 thyroid ultrasounds Findings: Right lobe: 7.5 x 4.0 x 5.4 cm. Lesion 1: 6.1 cm solid heterogeneous nodule, TR 4, not significantly changed. Left lobe: 3.2 x 0.7 x 0.9 cm. No nodules. Isthmus: 2 mm Homogeneous thyroid parenchyma. No local adenopathy. Impression: Stable 6.1 cm right thyroid nodule. Follow-up in 1-2 years recommended. Dictated by Bryan Soto MD @ 10/14/2023 1:31:39 PM (Electronically Signed)
--- OUTSIDE RECORDS SUMMARY | 2023-10-14 07:15 | XMS_ITS | Referral Summary ---
Author Organization [facility] Address [address] [place] [address] Care Team Providers Care Legal Biller Name Role Phone [facility]- Primary Care Provider Aleida White MD Unavailable [phone] Allergies No known active allergies Medications Medication [...] Comments Blood Pressure 104/76 02/17/2022 12:12 PM HYDRAULIC ROCKBREAKER OPERATOR Pulse 98 02/17/2022 12:12 PM HYDRAULIC ROCKBREAKER OPERATOR Temperature 36.4 ??C (97.6 ??F) 02/17/2022 1 2:12 PM HYDRAULIC ROCKBREAKER OPERATOR Respiratory Rate 16 02/17/2022 12:1 2 PM HYDRAULIC ROCKBREAKER OPERATOR Oxygen Saturation 94% 02/17/2022 12: 12 PM HYDRAULIC ROCKBREAKER OPERATOR Inhaled Oxygen Concentration - - Weight 101.6 kg (223 lb 14.4 oz) 02/17/2022 1:40 AM HYDRAULIC ROCKBREAKER OPERATOR Height 170.2 cm (5' 7) 02/17/2022 1:40 AM HYDRAULIC ROCKBREAKER OPERATOR Body Mass Index 35.07 02/17/2022 1:40 AM HYDRAULIC ROCKBREAKER OPERATOR Plan of Treatment Upcoming Encounters Date Type Department Care Team (Late st Contact Info) Description 10/21/2023 10:00 AM CDT Office Visit [facility] [address] [place] [address] Gabriela Briceno MD [facility] AND [address] [address] Aleida White MD [address] [place] [address] Procedures Procedure Name Priority Date/Time Associated Diagnosis Comments GLUCOSE (EXTERNAL RESULT) Routine 04/14/2023 10:52 AM HYDRAULIC ROCKBREAKER OPERATOR LIPID PANEL (EXTERNAL RESULT) Routine 04/14/2023 10:52 AM HYDRAULIC ROCKBREAKER OPERATOR from Last 3 Months or Most Recently Relevant to Health Maintenance Results * (ABNORMAL) Lipid Panel (External Result) (04/14/2023 10:52 AM HYDRAULIC ROCKBREAKER OPERATOR) Cholesterol (External) 215(A) 9 - 199 mg/dL [facility] Triglycerides (External) 172(A) 40 - 149 mg/dL [facility] HDL Cholesterol (External) 55 >=50 mg/dL [facility] LDL Cholesterol Calculated (External) 126(A) <100 mg/dL [facility] Blood 04/14/2023 10:5 2 AM [facility] - 04/14/2023 10:52 AM [facility] - External Lab Results Provider Outside LAB - HIM EXTERNAL R ESULT Performing Organization Address City/[facility]/ZIP Co de Phone Number [facility] [address] [place], [place] [id number] [place] [address] * (ABNORMAL) Glucose (External Result) (04/14/2023 10:52 AM [facility]) Glucose (External) 101(A) 60 - 115 mg/dL [facility] Blood 04/14/2023 10:5 2 AM [facility] - 04/14/2023 10:52 AM [facility] - External Lab Results Provider Outside LAB - [facility] EXTERNAL R ESULT Performing Organization Address City/[facility] Co de Phone Number [facility] [address] [phone] from Last 3 Months or Most Recently Relevant to Health Maintenance Advance Directives For more information, please contact: [phone] * Full Code (Latest Code Status on File) Date Activated Date Inactivated Comments 02/17/2022 1:15 AM 02/17/2022 2:31 PM All basic and advanced life-sustaining interventions are performed as appropriate Question Answer Comments Code status determined by: Discussion with shawn nt/ legal decision maker Care Teams Legal Biller Relationship Specialty Start Date End Date [facility]- [address] [place] [address] PCP - General 02/16/22 Aleida White MD [address] [place] [address] Hospitalist Endocrinology, Diabetes, and Metabolism 04/15/23
--- OUTSIDE RECORDS SUMMARY | 2023-10-14 07:15 | XMS_ITS | Clinical Summary ---
Author Organization [facility] Address [address] [place] [address] Care Team Providers Care Dehydrogenation Operator Head Name Role Phone [facility]- Primary Care Provider Aleida White MD Unavailable [phone] Allergies No known active allergies Medications Medication [...] Comments Blood Pressure 104/76 02/17/2022 12:12 PM CORRECTIONS CASEWORKER Pulse 98 02/17/2022 12:12 PM CORRECTIONS CASEWORKER Temperature 36.4 ??C (97.6 ??F) 02/17/2022 1 2:12 PM CORRECTIONS CASEWORKER Respiratory Rate 16 02/17/2022 12:1 2 PM CORRECTIONS CASEWORKER Oxygen Saturation 94% 02/17/2022 12: 12 PM CORRECTIONS CASEWORKER Inhaled Oxygen Concentration - - Weight 101.6 kg (223 lb 14.4 oz) 02/17/2022 1:40 AM CORRECTIONS CASEWORKER Height 170.2 cm (5' 7) 02/17/2022 1:40 AM CORRECTIONS CASEWORKER Body Mass Index 35.07 02/17/2022 1:40 AM CORRECTIONS CASEWORKER Plan of Treatment Upcoming Encounters Date Type Department Care Team (Late st Contact Info) Description 10/21/2023 10:00 AM CDT Office Visit [facility] [address] [place] [address] Gabriela Briceno MD [facility] [address] [address] Aleida White MD [address] [place] [address] Health Maintenance Due Date Last Done Comments ADVANCE CARE PLANNING 1981 ANNUAL REVIEW OF HM ORDERS 1981 MAMMO SCREENING 1981 YEARLY PREVENTIVE VISIT 1981 HIV SCREENING 1996 HEPATITIS C SCREENING 11/24/1999 HEPATITIS B IMMUNIZATION (1 of 3 - 19+ 3-dose series) 2000 PAP 2002 COVID-19 Vaccine (2022-2 4 season) 2022 05/03/2021, 07/03/2020, 06/09/2020 PHQ-2 (once per calendar year) 2023 INFLUENZA VACCINE (#1) 2023 11/11/2019 GLUCOSE 04/14/2026 04/14/2023, 02/17/2022, 02/16/2022 [...] GLUCOSE (EXTERNAL RESULT) Routine 04/14/2023 10:52 AM CORRECTIONS CASEWORKER LIPID PANEL (EXTERNAL RESULT) Routine 04/14/2023 10:52 AM CORRECTIONS CASEWORKER from Last 3 Months or Most Recently Relevant to Health Maintenance Results * (ABNORMAL) Lipid Panel (External Result) (04/14/2023 10:52 AM CORRECTIONS CASEWORKER) [facility] Signature Cholesterol (External) 215(A) 9 - 199 mg/dL [facility] Triglycerides (External) 172(A) 40 - 149 mg/dL [facility] HDL Cholesterol (External) 55 >=50 mg/dL [facility] LDL Cholesterol Calculated (External) 126(A) <100 mg/dL [facility] Blood 04/14/2023 10:5 2 AM CORRECTIONS CASEWORKER Narrative [facility] - 04/14/2023 10:52 AM CORRECTIONS CASEWORKER [facility] - External Lab Results Provider Outside LAB - HIM EXTERNAL R ESULT [facility] [address] [place] [address], [facility] [phone] * (ABNORMAL) Glucose (External Result) (04/14/2023 10:52 AM CORRECTIONS CASEWORKER) Glucose (External) 101(A) 60 - 115 mg/dL [facility] Blood 04/14/2023 10:5 2 AM [facility] Narrative [facility] - 04/14/2023 10:52 AM [facility] - External Lab Results Provider Outside LAB - HIM EXTERNAL R ESULT [facility] [address] [place], [place] [address] [phone] from Last 3 Months or Most Recently Relevant to Health Maintenance Advance Directives For more information, please contact: [phone] * Full Code (Latest Code Status on File) Date Activated Date Inactivated Comments 02/17/2022 1:15 AM 02/17/2022 2:31 PM All basic and advanced life-sustaining interventions are performed as appropriate Question Answer Comments Code status determined by: Discussion with patie nt/ legal decision maker Care Teams Dehydrogenation Operator Head Relationship Specialty Start Date End Date [facility]- [address] [place] [address] PCP - General 02/16/22 Aleida White MD [address] [place] [address] Hospitalist Endocrinology, Diabetes, and Metabolism 04/15/23
--- OUTSIDE RECORDS SUMMARY | 2023-10-14 07:15 | XMS_ITS | Clinical Summary ---
Author Organization [employer] [facility] [employer] [employer] Address [place], [place] [address] Care Team Providers Care Clinical Education Manager Name Role Phone Clinic, No Pcp Or [...] T Respiratory Rate 20 03/22/2018 9:49 AM CARDIO TECH Oxygen Saturation 96% 03/22/2018 9:49 AM CARDIO TECH Inhaled Oxygen Concentration - - Weight 92.1 [...] Procedure Name Priority Date/Time Associated Diagnosis Comments CAMERA MACHINIST THIN PREP PAP SCREEN IMAGED Routine 02/22/2019 1:00 PM CARDIO TECH from Last 3 Months or Most Recently Relevant to Health Maintenance Results * CAMERA MACHINIST THIN PREP PAP SCREEN IMAGED (02/22/2019 1:00 PM CARDIO TECH) Case Report Gynecologic Cytology Report ? Case: [id number] ? Authorizing Provider: ??Selena Kamara NP ? Collected: ? 02/22/2019 1300 ? Ordering Location: ? [facility] ?Received: ?02/23/2019 1708 ? First Screen: ?Peter Conde ? Specimen: ?CAMERA MACHINIST ThinPrep Vial Screening, Cervical/Vaginal ? 03/02/2019 2:18 PM [facility] INTERPRETATION/ RESULT NEGATIVE FOR INTRAEPITHELIAL LESION OR MALIGNANCY (NIL) (none) 03/02/2019 2:[address] [facility] IMEN ADEQUACY Satisfactory for evaluation Endocervical component present 03/02/2019 2:18 PM [facility] HPV REQUEST HPV and PAP 03/02/2019 2:18 PM [facility] Date of LMP 02/08/2019 03/02/2019 2:18 PM [facility] Last Pap Date 03/02/2019 2:18 PM [facility] Comment:unknown Additional Information 03/02/2019 2:18 PM [facility] Comment: Interpreted at [facility], Central Laboratory - [address] [address] Automated Review Successful 03/02/2019 2:18 PM [facility] Comment:Specimen processed s uccessfully by automated asset protection representative device, ThinPrep Imaging System, [employer] ANCILLARY TESTING CAMERA MACHINIST HPV Ordered, Please see separate report 03/02/2019 2:18 PM [facility] Note The pap test is a screening technique, not a diagnostic procedure. It is used primarily to screen for squamous cancers and precursor lesions. Published studies have shown that it is subject to both false negative and false positive results. The pap test should not be used as the sole means to diagnose or exclude pre-malignant and malignant lesions. 03/02/2019 2:18 PM [facility] Other (Cervical/Vagina l) 02/22/2019 1:00 PM CARDIO TECH 02/23/2019 5:08 PM CARDIO TECH Selena Kamara NP PATHOLOGY/CYTOLOGY [facility]-CENTRAL LABORATORY [address] [place] [address], [place] from Last 3 Months or Most Recently Relevant to Health Maintenance Care Teams Clinical Education Manager Relationship Specialty Start Date End Date Clinic, No Pcp Or . PCP - General 03/22/18
--- OUTSIDE RECORDS SUMMARY | 2023-10-14 07:15 | XMS_ITS | Clinical Summary ---
Author Organization [facility] Address [address] [place] [address] Care Team Providers Care Psych Tech Name Role Phone Unavailable Primary Care Provider [...] for each transition of care or referral. [facility] Allergies No known active allergies Medications [...] 1981 Hep C Screening (Preventive Services) 1981 Mammogram 1981 HIV Screening (Preventive Services) 1997 Adult Preventive Visit 11/24/1999 HepB (1) 2000 COVID-19 Vaccine (4 - 2022-2 4 season) 2022 05/03/2021, 07/03/2020, 06/09/2020 Influenza (#1) 2023 11/11/2019 DTaP/Tdap/Td (2 - Tdap) 02/16/2029 [...]
--- OUTSIDE RECORDS SUMMARY | 2023-10-14 07:15 | XMS_ITS | Data Portability ---
Author Organization [place] [facility] Address [facility] [facility] [address] [place] [address] Care Team Providers Care Outsole Molder Name Role Phone SYEDHUA Referring Provider Assessment Encounter Date Assessment Date [...] was reviewed and discussed with the patient. [email or web address] Not available 01/25/2019 11:47:45 02/21/2019 02/21/2019 Symptoms [...] guarding habits to decrease pain by 50% MCC goals-6 weeks Client to demonstrate independence in [...] guarding habits to decrease pain by 50% MCC goals-6 weeks Client to demonstrate independence in [...] Lab None recorded. Referral physical therapist referral 2018 019 [email or web address] [place] [address], [place], [address], 9 11:49:14 physical therapist referral 2019 020 [place] [address], [place], [address], 0 09:09:05 physical therapist referral 2019 020 [place] [facility] [address], [place], [address], 0 10:30:11 Procedures None recorded. Surgeries None recorded. Imaging None recorded. Medication Orders None recorded. Patient TargetsNo targets recorded. Patient Instructions Encounter Date Encounter Id Patient Instructions Last Modified By Organization Details Last Modified Time 01/25/2019 [id number] oral appliance preparation* Not available 01/25/2019 11:49:14 [facility] for TMD Not availabl e 01/25/2019 11:49:14 02/21/2019 [id number] oral appliance preparation* SRI Not available 02/23/2019 09:09:15 Self Care for TMD csather Not availabl e 02/21/2019 11:02:57 02/23/2019 [id number] oral appliance preparation* SRI Not available 03/16/2019 10:43:27 Self Care for TMD csather Not availabl e 02/23/2019 13:42:49 Reason for Referral Physical Therapist Referral for [...] Name Description Value Unit Range Abnormal Flag Note LastModifiedBy Organization Detail LastModifiedTime 01/25/2019 oral appli ance prepa ratio n* Type of appliance maxill naif stabil izatio n applia nce Not Available [place] [address], [place], [address], 01/25/2019 11:46:59 01/26/20 19 XR, ortho panto gram No observ ation record ed. [email or web address] Not Available 2018 10:36:17 Result Notes None recorded. 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 2018 left disc displaceme nt with reduction; right disc displaceme nt without reduction- closed lock EVELYN [facility] 9 11:45:28 Arthralgia of temporoman dibular joint 07474766 Active 2018 EVELYN [facility] 9 11:45:03 Limited opening of mandible 842916933 Active 2018 Gabriela gatica [facility] 9 11:45:04 Tension-ty pe headache 194347102 Active 2018 Gabriela Genny gatica [facility] 9 11:45:04 Otalgia of right ear Active 2018 Gabriela Genny gatica [facility] 9 11:45:06 Problem Notes None recorded. Procedures Surgical History Date Name Laterality Status Provider Name and Address Organization Details Recorded Time 02/23/19 25263: Therapeutic Exercise completed Noel gatica [facility] 02/23/2019 13:03:47 02/23/19 43671: Manual Therapy completed Noel gatica [facility] 02/23/2019 13:42:15 02/21/19 42567 PT Eval - Low Complexity completed Noel gatica [facility] 02/21/2019 10:59:27 02/21/19 13756: Therapeutic Exercise completed Noel gatica [facility] 02/21/2019 11:00:00 02/21/19 12104: Manual Therapy completed Noel gatica [facility] 02/21/2019 10:59:57 01/26/20 19 Orthopantogram completed Gabriela gatica [facility] 01/25/2019 11:06:06 [...] Updated DateTime 9 170.18 cm 31.3 kg/m2 94510.4 7 g 80 /min 119 mm[Hg] 79 mm[Hg] Jeancarlos Duckworthanahi [facility] 9 10:11:18 Social History Question Answer Notes LastModified by Organizat ion Details LastModified Time Tobacco Smoking Status Never Smoker Jeancarlos Girondionyanahi en [facility] 01/25/2019 10:11:44 [...] t available 01/25/2019 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 No Information not available 01/25/2019 Sex: Unknown Functional Status Question Answer Note LastModified by Organizat ion Details LastModified Time What is your exercise level? Occasional Information not available 01/25/2019 Mental Status None recorded. Family History Relationship Description Onset Age of this Age Resolved Age Notes Father Heart disease Father Mental health problem Maternal Grandmother Family history of malignant neoplasm Mother Mental health problem Medical History Condition [...] Anemia N Multiple Sclerosis N Heart Attack (DC) N Stomach Ulcers N Diabetes N Bleeding [...] Encounter Closed Date Diagnosis/Indication Diagnosis SNOMED-CT Code [id number] Gabriela Pettit [address] [place] [address] 01/25/2019 09:54:02 01/25/2019 11:27:09 Limited opening of mandible 638727859 Tension-type headache 39 4693470 Otalgia of right ear 109 195050741281 5 Articular disc disorder of temporomandibular joint 41237799 Arthralgia of temporomandibular joint 51480364 Myofascial pain 60234637 9 [id number] Noel Shah [place] [address] [place] [address] 02/21/2019 10:01:11 02/21/2019 13:14:37 Articular disc disorder of temporomandibular joint 40884321 Myofascial pain 28883379 9 Arthralgia of temporomandibular joint 78834803 Limited op ening of mandible 847581768 Tension-type headache 39 2799539 [id number] Noel Alyssa [place] [address] [place] [phone] 02/23/2019 12:57:36 02/23/2019 13:32:02 Articular disc disorder of temporomandibular joint 42120202 Myofascial pain 88955921 9 Arthralgia of temporomandibular joint 98964618 Limited op ening of mandible 355712729 Tension-type headache 39 5941576 Health Concerns Section Related Observation LastModified by Organization Detai ls LastModified Time None Recorded Concern Status LastModified by Organization Details LastModified Time None Recorded Advance Directives Directive None Recorded Payers Encounter Date Sequence Insurance Name Policy Number Policy Lynch Covered Member ID Lynch Member ID Guarantor Name 01/25/2019 1 [place] Yung Brice [id number] Yung Brice 02/21/2019 1 [place] Yung Brice [id number] Yung Brice 02/23/2019 1 [place] Yung Brice [id number] Yung Brice Notes Date Note Type [...] that her jaw is locked. Gabriela gatica [facility] 01/25/2019 11:49:18 [...]
== END 2023-10-14 07:14 | disposition home or self-care (01) ==
LOC: US 07:13
PROVIDERS: PCP Family Medicine; Visit Provider Surgery
DX: E04.1 Nontoxic single thyroid nodule (principal)
CPT/HCPCS: 76536

== ENCOUNTER 2023-11-03 08:12 | Outpatient (CLI) | payer BC, SELFPAY ==
--- OUTSIDE RECORDS SUMMARY | 2023-11-03 08:27 | XMS_ITS | Clinical Summary ---
Author Organization [employer] [facility] [employer] Address [place], [place] [address] Care Team Providers Care Notched Blade Loader Name Role Phone Clinic, No Pcp Or [...] T Respiratory Rate 20 03/22/2018 9:49 AM PREPARATION SUPERVISOR CANNING Oxygen Saturation 96% 03/22/2018 9:49 AM PREPARATION SUPERVISOR CANNING Inhaled Oxygen Concentration - - Weight 92.1 [...] 0, 02/22/2019 COVID-19 vaccine series (2022- season) 2023 Influenza for age 9-49 10/18/2023 Pneumococcal series for age 6-64 Aged Out No longer eligible b ased on patient's age to complete this topic Procedures Procedure Name Priority Date/Time Associated Diagnosis Comments LAPPING MACHINE SET UP OPERATOR THIN PREP PAP SCREEN IMAGED Routine 02/22/2019 1:00 PM PREPARATION SUPERVISOR CANNING from Last 3 Months or Most Recently Relevant to Health Maintenance Results * LAPPING MACHINE SET UP OPERATOR THIN PREP PAP SCREEN IMAGED (02/22/2019 1:00 PM PREPARATION SUPERVISOR CANNING) Case Report Gynecologic Cytology Report ? Case: [id number] ? Authorizing Provider: ??Selena Kamara NP ? Collected: ? 02/22/2019 1300 ? Ordering Location: ? [facility] ?Received: ?02/23/2019 1708 ? First Screen: ?Peter Conde ? Specimen: ?LAPPING MACHINE SET UP OPERATOR ThinPrep Vial Screening, Cervical/Vaginal ? 03/02/2019 2:18 PM [facility] INTERPRETATION/ RESULT NEGATIVE FOR INTRAEPITHELIAL LESION OR MALIGNANCY (NIL) (none) 03/02/2019 2:18 PM [facility] IMEN ADEQUACY Satisfactory for evaluation Endocervical component present 03/02/2019 2:18 PM [facility] HPV REQUEST HPV and PAP 03/02/2019 2:18 PM [facility] Date of LMP 02/08/2019 03/02/2019 2:18 PM [facility] Last Pap Date 03/02/2019 2:18 PM [facility] Comment:unknown Additional Information 03/02/2019 2:18 PM [facility] Comment: Interpreted at [facility], Central Laboratory - [address], [place] [address] Automated Review Successful 03/02/2019 2:18 PM [facility] Comment:Specimen processed s uccessfully by automated education dean device, ThinPrep Imaging System, [employer] ANCILLARY TESTING LAPPING MACHINE SET UP OPERATOR HPV Ordered, Please see separate report 03/02/2019 2:18 PM [facility] Note The pap test is a screening technique, not a diagnostic procedure. It is used primarily to screen for squamous cancers and precursor lesions. Published studies have shown that it is subject to both false negative and false positive results. The pap test should not be used as the sole means to diagnose or exclude pre-malignant and malignant lesions. 03/02/2019 2:18 PM [facility] Other (Cervical/Vagina l) 02/22/2019 1:00 PM PREPARATION SUPERVISOR CANNING 02/23/2019 5:08 PM PREPARATION SUPERVISOR CANNING Selena Kamara NP PATHOLOGY/CYTOLOGY [facility]ORY [address] [place] [address], [place] from Last 3 Months or Most Recently Relevant to Health Maintenance Care Teams Notched Blade Loader Relationship Specialty Start Date End Date Clinic, No Pcp Or . PCP - General 03/22/18
--- OUTSIDE RECORDS SUMMARY | 2023-11-03 08:27 | XMS_ITS | Clinical Summary ---
Author Organization [facility] Address [address] [place] [address] Care Team Providers Care Soaker Name Role Phone [facility]- Primary Care Provider Aleida White MD Unavailable [phone] Allergies No known active allergies Medications Medication [...] Active Immunizations Name Administration Dates Next Due Influenza,INJ,MDCK,PF,Quad >6mo(Flucelvax) 11/10 TDAP Vaccine (Adacel) 02/16/2019 Social History Tobacco [...] Comments Blood Pressure 104/76 02/17/2022 12:12 PM RADIOLOGICAL DEFENSE OFFICER Pulse 98 02/17/2022 12:12 PM RADIOLOGICAL DEFENSE OFFICER Temperature 36.4 ??C (97.6 ??F) 02/17/2022 1 2:12 PM RADIOLOGICAL DEFENSE OFFICER Respiratory Rate 16 02/17/2022 12:1 2 PM RADIOLOGICAL DEFENSE OFFICER Oxygen Saturation 94% 02/17/2022 12: 12 PM RADIOLOGICAL DEFENSE OFFICER Inhaled Oxygen Concentration - - Weight 101.6 kg (223 lb 14.4 oz) 02/17/2022 1:40 AM RADIOLOGICAL DEFENSE OFFICER Height 170.2 cm (5' 7) 02/17/2022 1:40 AM RADIOLOGICAL DEFENSE OFFICER Body Mass Index 35.07 02/17/2022 1:40 AM RADIOLOGICAL DEFENSE OFFICER Plan of Treatment Health Maintenance Due Date Last Done Comments ADVANCE CARE PLANNING 1981 ANNUAL REVIEW OF HM ORDERS 1981 MAMMO SCREENING 1981 YEARLY PREVENTIVE VISIT 1981 HIV SCREENING 1996 HEPATITIS C SCREENING 11/24/1999 HEPATITIS B IMMUNIZATION (1 of 3 - 19+ 3-dose series) 2000 PAP 02/22/2022 02/22/2019 PHQ-2 (once per calendar year) 2023 COVID-19 Vaccine (4 - 2022-2 4 season) 2023 05/03/2021, 07/03/2020, 06/09/2020 INFLUENZA VACCINE (#1) 2023 11/11/2019 GLUCOSE 04/14/2026 [...] GLUCOSE (EXTERNAL RESULT) Routine 04/14/2023 10:52 AM RADIOLOGICAL DEFENSE OFFICER LIPID PANEL (EXTERNAL RESULT) Routine 04/14/2023 10:52 AM RADIOLOGICAL DEFENSE OFFICER from Last 3 Months or Most Recently Relevant to Health Maintenance Results * (ABNORMAL) Lipid Panel (External Result) (04/14/2023 10:52 AM RADIOLOGICAL DEFENSE OFFICER) Cholesterol (External) 215(A) 9 - 199 mg/dL [facility] Triglycerides (External) 172(A) 40 - 149 mg/dL [facility] HDL Cholesterol (External) 55 >=50 mg/dL [facility] LDL Cholesterol Calculated (External) 126(A) <100 mg/dL [facility] Blood 04/14/2023 10:[address] [facility] - 04/14/2023 10:52 AM [facility] - External Lab Results Provider Outside LAB - [facility] EXTERNAL R ESULT Performing Organization Address City/[facility]/ZIP Co de Phone Number [facility] [address] [place] [address], [facility] [phone] * (ABNORMAL) Glucose (External Result) (04/14/2023 10:52 AM RADIOLOGICAL DEFENSE OFFICER) Glucose (External) 101(A) 60 - 115 mg/dL [facility] Blood 04/14/2023 10:[address] [facility] - 04/14/2023 10:52 AM [facility] - External Lab Results Provider Outside LAB - [facility] EXTERNAL R ESULT Performing Organization Address City/[facility]/ZIP Co de Phone Number [facility] [address] [place] [address], [facility] [phone] from Last 3 Months or Most Recently Relevant to Health Maintenance Advance Directives For more information, please contact: [phone] * Full Code (Latest Code Status on File) Date Activated Date Inactivated Comments 02/17/2022 1:15 AM 02/17/2022 2:31 PM All basic and advanced life-sustaining interventions are performed as appropriate Question Answer Comments Code status determined by: Discussion with shawn nt/ legal decision maker Care Teams Soaker Relationship Specialty Start Date End Date [facility]- [address] [place] [address] PCP - General 02/16/22 Aleida White MD [address] [place] [address] Hospitalist Endocrinology, Diabetes, and Metabolism 04/15/23
--- OUTSIDE RECORDS SUMMARY | 2023-11-03 08:27 | XMS_ITS | Clinical Summary ---
Author Organization [facility] Address [address] [place] [address] Care Team Providers Care Email Production Consultant Name Role Phone Unavailable Primary Care Provider [...] for each transition of care or referral. [facility] [place] Allergies No known active allergies Medications Medication [...] HepB (1) 2000 COVID-19 Vaccine (4 - 2023-2 5 season) 2023 05/03/2021, 07/03/2020, 06/09/2020 Influenza (#1) 2023 11/11/2019 [...]
--- OUTSIDE RECORDS SUMMARY | 2023-11-03 08:27 | XMS_ITS | Referral Summary ---
Author Organization [facility] Address [address] [place] [id number] Care Team Providers Care Carpet Journeyman Name Role Phone [facility]- Primary Care Provider Aleida White MD Unavailable [phone] Allergies No known active allergies Medications Medication [...] Comments Blood Pressure 104/76 02/17/2022 12:12 PM FIELD ASSOCIATE Pulse 98 02/17/2022 12:12 PM FIELD ASSOCIATE Temperature 36.4 ??C (97.6 ??F) 02/17/2022 1 2:12 PM FIELD ASSOCIATE Respiratory Rate 16 02/17/2022 12:1 2 PM FIELD ASSOCIATE Oxygen Saturation 94% 02/17/2022 12: 12 PM FIELD ASSOCIATE Inhaled Oxygen Concentration - - Weight 101.6 kg (223 lb 14.4 oz) 02/17/2022 1:40 AM FIELD ASSOCIATE Height 170.2 cm (5' 7) 02/17/2022 1:40 AM FIELD ASSOCIATE Body Mass Index 35.07 02/17/2022 1:40 AM FIELD ASSOCIATE Plan of Treatment Not on file Procedures Procedure Name Priority Date/Time Associated Diagnosis Comments GLUCOSE (EXTERNAL RESULT) Routine 04/14/2023 10:52 AM FIELD ASSOCIATE LIPID PANEL (EXTERNAL RESULT) Routine 04/14/2023 10:52 AM FIELD ASSOCIATE from Last 3 Months or Most Recently Relevant to Health Maintenance Results * (ABNORMAL) Lipid Panel (External Result) (04/14/2023 10:52 AM FIELD ASSOCIATE) Cholesterol (External) 215(A) 9 - 199 mg/dL [facility] Triglycerides (External) 172(A) 40 - 149 mg/dL [facility] HDL Cholesterol (External) 55 >=50 mg/dL [facility] LDL Cholesterol Calculated (External) 126(A) <100 mg/dL [facility] Blood 04/14/2023 10:5 2 AM FIELD ASSOCIATE Narrative [facility] - 04/14/2023 10:52 AM FIELD ASSOCIATE [facility] - External Lab Results Provider Outside LAB - HIM EXTERNAL R ESULT [facility] [address] [place], [place] [address] [phone] * (ABNORMAL) Glucose (External Result) (04/14/2023 10:52 AM FIELD ASSOCIATE) Glucose (External) 101(A) 60 - 115 mg/dL [facility] Blood 04/14/2023 10:5 2 AM FIELD ASSOCIATE Narrative [facility] - 04/14/2023 10:52 AM FIELD ASSOCIATE [facility] - External Lab Results Provider Outside LAB - HIM EXTERNAL R ESULT [facility] [address] [place], [place] [id number] [place] [address] from Last 3 Months or Most Recently Relevant to Health Maintenance Advance Directives For more information, please contact: [phone] * Full Code (Latest Code Status on File) Date Activated Date Inactivated Comments 02/17/2022 1:15 AM 02/17/2022 2:31 PM All basic and advanced life-sustaining interventions are performed as appropriate Question Answer Comments Code status determined by: Discussion with shawn nt/ legal decision maker Care Teams Carpet Journeyman Relationship Specialty Start Date End Date [facility]- [address] [place] [address] PCP - General 02/16/22 Aleida White MD [address] [place] [address] Hospitalist Endocrinology, Diabetes, and Metabolism 04/15/23
== END 2023-11-03 08:13 | disposition home or self-care (01) ==
PROVIDERS: PCP Family Medicine; Visit Provider Family Medicine
DX: E04.1 Nontoxic single thyroid nodule (principal); E55.9 Vitamin D deficiency, unspecified; G25.81 Restless legs syndrome
CPT/HCPCS: 80053; 82306; 82728; 84443

== ENCOUNTER 2024-05-09 09:22 | Outpatient (CLI) | payer BC, SELFPAY ==
[2024-05-11 04:00] LABS: HPV Source Endocervical; HPV, High Risk by TMA Not Detected
== END 2024-05-09 09:23 | disposition home or self-care (01) ==
PROVIDERS: PCP Family Medicine; Visit Provider Family Medicine
DX: E04.9 Nontoxic goiter, unspecified (principal); E55.9 Vitamin D deficiency, unspecified; Z12.4 Encounter for screening for malignant neoplasm of cervix; Z11.51 Encounter for screening for human papillomavirus (HPV); Z13.220 Encounter for screening for lipoid disorders
CPT/HCPCS: 80053; 80061; 82306; 84443; 87624; 87625; 88141; 88142

== ENCOUNTER 2024-05-17 09:46 | Outpatient (CLI) | payer BC, SELFPAY ==
--- NOTE | 2024-05-17 10:00 | CRLHL7_ITS ---
For Patients: As a result of the Cures Act, medical imaging exams and procedure reports are released immediately into your electronic medical record. You may view this report before your referring provider. If you have questions, please contact your health care provider. INDICATION: Lung nodule. TECHNIQUE: CT chest without contrast. COMPARISON: Thyroid ultrasound on October 14, 2023. FINDINGS: Lungs and pleura: No suspicious solid, noncalcified pulmonary nodules or consolidation. Calcified granuloma in the middle lobe measuring 8 mm (3/58). No pleural effusion or pneumothorax. Heart and vasculature: Heart size is normal. Thoracic aorta and pulmonary artery are normal in caliber. Lymph nodes/mediastinum: Enlarged right thyroid mass measuring at least 5.1 cm, better characterized on prior thyroid ultrasound dated October 14, 2023 (2/). No mediastinal, hilar, or axillary adenopathy. Calcified, nonenlarged mediastinal and right hilar lymph nodes. Chest wall: Biopsy clip in the right breast. Upper abdomen: Cholecystectomy. Bones: No acute fracture. No aggressive appearing lytic or blastic osseous lesion. IMPRESSION: 1. No suspicious pulmonary nodule or consolidation. 2. Sequela of benign granulomatous disease including calcified granuloma in the lung and calcified mediastinal adenopathy. 3. Large right thyroid mass measuring at least 5.1 cm, better characterized on prior thyroid ultrasound dated October 14, 2023. Please note that all CT scans at this facility use dose modulation, iterative reconstruction, and/or weight-based dosing when appropriate to reduce radiation dose to as low as reasonably achievable. Dictated by Jose Manuel Monsivais MD @ 05/18/2024 7:54:39 PM (Electronically Signed)
== END 2024-05-17 09:47 | disposition home or self-care (01) ==
LOC: CT 09:47
PROVIDERS: PCP Family Medicine; Visit Provider Family Medicine
DX: R91.1 Solitary pulmonary nodule (principal); E04.1 Nontoxic single thyroid nodule
CPT/HCPCS: 71250

== ENCOUNTER 2024-11-18 09:01 | Outpatient (CLI) | payer BC, SELFPAY ==
--- NOTE | 2024-11-18 09:15 | CRLHL7_ITS ---
For Patients: As a result of the Century Cures Act, medical imaging exams and procedure reports are released immediately into your electronic medical record. You may view this report before your referring provider. If you have questions, please contact your health care provider. INDICATION: BILATERAL SCREENING MAMMOGRAM, ASYMPTOMATIC 43 Y/O FEMALE COMPARISON: 07/09/2023, 06/30/2022, 06/11/2023 TECHNIQUE: Digital mammogram in CC and MLO projections including computer-aided detection (CAD) and tomosynthesis. BREAST COMPOSITION: The breasts are heterogeneously dense, which may obscure small masses. FINDINGS: No suspicious findings. ASSESSMENT: BI-RADS 2 Benign RECOMMENDATION: Annual screening mammogram. A lay language report of this examination will be provided to the patient. Dictated by: Shiva Staton MD @ 11/18/2024 10:22:17 (Electronically Signed)
== END 2024-11-18 09:02 | disposition home or self-care (01) ==
LOC: MAMMO 09:01
PROVIDERS: PCP Family Medicine; Visit Provider Family Medicine
DX: Z12.31 Encounter for screening mammogram for malignant neoplasm of breast (principal); R92.333 Mammographic heterogeneous density, bilateral breasts
CPT/HCPCS: 77063; 77067

== ENCOUNTER 2024-11-28 08:07 | Outpatient (CLI) | payer BC, SELFPAY ==
--- NOTE | 2024-11-28 08:15 | CRLHL7_ITS ---
For Patients: As a result of the Century Cures Act, medical imaging exams and procedure reports are released immediately into your electronic medical record. You may view this report before your referring provider. If you have questions, please contact your health care provider. INDICATION: F/U Thyroid Nodule COMPARISON: 10/14/2023 TECHNIQUE: Siegel scale and color Doppler images were acquired of the thyroid gland. FINDINGS: Large solid heterogeneous nodule right thyroid lobe measures 6.1 x 3.7 x 4.8 cm, previously measuring 6.1 x 3.9 x 5.1 cm, TR 4, previously biopsied. No additional nodule. Assess measures 2 millimeters. The right lobe measures 7.5 x 4.0 x 5.7 cm and the left lobe measures 3.2 x 0.8 x 0.9 cm in size. The color Doppler images demonstrate normal vascularity. There is no evidence of cervical lymphadenopathy or parathyroid mass. IMPRESSION: No significant interval change in the large right thyroid lobe nodule. Dictated by Shiva Staton MD @ 11/28/2024 9:37:17 AM (Electronically Signed)
== END 2024-11-28 08:08 | disposition home or self-care (01) ==
PROVIDERS: PCP Family Medicine; Visit Provider Surgery
DX: E04.1 Nontoxic single thyroid nodule (principal)
CPT/HCPCS: 76536